=== PATIENT | female | born 1945 | race Caucasian/White ===

== ENCOUNTER → 2020-06-29 11:53 | Outpatient (CLI) | payer MEDICARE, OTHER, SELFPAY ==
--- NOTE | ~2020-06-29 | XR_ITS ---
XR_CERV2-3V_CR 06/29/2020 12:09 Indication: Neck pain. Cervicalgia. Procedure: 4 view cervical spine Comparison: No prior studies for comparison. Findings: Vertebral body heights are maintained. There is mild disc narrowing at C4-5 and C5-6. There is moderate multilevel uncinate and facet hypertrophy. Lung apices are unremarkable. Odontoid proces s within normal limits. No prevertebral soft tissue swelling. Impression: 1: Moderate cervical spondylosis. Reviewed, dictated and finalized at location A. Impression: 1: Moderate cervical spondylosis.
--- NOTE | ~2020-06-29 | XR_ITS ---
XR foot RT 2V 06/29/2020 12:09 Indication: Right foot pain Procedure: 2 views right foot Comparison: No prior studies for comparison. Findings: Mild osteoarthritis of the first MTP joint. Lisfranc joint joint intact. Osteopenia. No for eign bodies. There are degenerative calcaneal enthesophytes. Impression: 1: Mild osteoarthritis right first MTP joint. Reviewed, dictated and finalized at location A. Impression: 1: Mild osteoarthritis right first MTP joint.
== END ==
PROVIDERS: Visit Provider Family Medicine
DX: M54.2 Cervicalgia (principal); M79.671 Pain in right foot; M19.071 Primary osteoarthritis, right ankle and foot; M47.812 Spondylosis without myelopathy or radiculopathy, cervical region
CPT/HCPCS: 72040; 73620

== ENCOUNTER → 2021-03-08 12:16 | Outpatient (CLI) | payer MEDICARE, OTHER, SELFPAY ==
--- NOTE | ~2021-03-08 | XR_ITS ---
EXAMINATION: XR chest 2V DATE: 03/08/2021 12:44 INDICATION: Cough, unspecified. TECHNIQUE: Frontal and lateral views of the chest were obtained. COMPARISON: Chest 2 views 04/18/2018 FINDINGS: Calcified bilateral pulmonary nodules and calcified hilar and mediastinal lymph nodes are c onsistent with old granulomatous disease. No pleural effusion or pneumothorax. The heart size is norm al. There is mild chronic anterior wedging of a lower thoracic vertebral body. IMPRESSION: 1. No acute cardiopulmonary disease. 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
== END ==
PROVIDERS: PCP Family Medicine; Visit Provider Family Medicine
DX: R05.9 Cough, unspecified (principal)
CPT/HCPCS: 71046

== ENCOUNTER 2021-11-03 09:47 | Outpatient (CLI) | payer MEDICARE, OTHER, SELFPAY ==
[2021-11-03 11:50] LABS: Folic Acid > 20.0 ng/mL (2.76->20)
== END 2021-11-03 09:48 | disposition home or self-care (01) ==
PROVIDERS: PCP Family Medicine; Visit Provider Nurse Practitioner Family
DX: E53.8 Deficiency of other specified B group vitamins (principal)
CPT/HCPCS: 36415; 82607; 82746

== ENCOUNTER 2021-11-29 14:24 | Outpatient (CLI) | payer MEDICARE, OTHER, SELFPAY ==
--- NOTE | 2021-11-29 14:59 | ECHO_ITS ---
Patient Info Name: Shala Gonzalez Age: 76 years : 1945 Gender: Female Ht: 55 in Wt: 113 lbs BSA: 1.43 m2 BP: 178 / 74 mmHg Technical Quality: Good Exam Date: 11/29/2021 3:28 PM Exam Location: [facility] Patient Status: Outpatient Admit Date: 11/29/2021 Staff Ordering Physician: Avani Dupont Sanitation Supervisor: Eddie Britt RDCS, RT Attending Provider: Avani Dupont Referring Physician: Kiah KUMAR; Exam Type: CA echo dop color flow w con Study Info Indications R01.1 - Cardiac murmur, unspecified Complete two-dimensional, color flow and Doppler transthoracic echocardiogram is performed. Strain analysis performed. Summary 1. Complete two-dimensional, color flow and Doppler transthoracic echocardiogram is performed. 2. Left ventricular chamber dimension is normal. 3. Left ventricular systolic function is normal, estimated at 65-70%. 4. The left ventricular diastolic function is grade II diastolic dysfunction. 5. Global longitudinal strain is normal at -17.3%. 6. Left atrial chamber dimension is mildly enlarged. 7. There is mild to moderate mitral valve regurgitation. 8. There is moderate tricuspid valve regurgitation. 9. Mild pulmonary hypertension, estimated pulmonary arterial systolic pressure is 42 mmHg. 10. Small atheroma in anterior aortic root. Left Ventricle Global longitudinal strain is normal at -17.3%. Left ventricular chamber dimension is normal. Left ventricular systolic function is normal, estimated at 65-70%. The left ventricular diastolic function is grade II diastolic dysfunction. Tissue doppler E/e' is not calculated. Right Ventricle Right ventricular systolic function is normal and with normal TAPSE 2.2 cm. Right ventricular chamber dimension is normal. Left Atria Left atrial chamber dimension is mildly enlarged. Right Atria Right atrial chamber dimension is normal. Aortic Valve The aortic valve is trileaflet. There is no aortic valve stenosis. There is no aortic valve regurgitation. Pulmonic Valve There is no pulmonic regurgitation. Mitral Valve There is no mitral valve stenosis. There is mild to moderate mitral valve regurgitation. Tricuspid Valve There is moderate tricuspid valve regurgitation. Mild pulmonary hypertension, estimated pulmonary arterial systolic pressure is 42 mmHg. Pericardium/Pleural There is no pericardial effusion. Inferior Vena Cava Normal inferior vena cava with >50% collapse upon inspiration consistent with normal right atrial pressure, 5 mmHg. Aorta Small atheroma in anterior aortic root. The aortic root size at the sinus of Valsalva is normal. Left Ventricular Outflow Tract Name Value Normal LVOT 2D LVOT Diameter 1.87 cm LVOT Doppler LVOT Peak Gradient 5 mmHg LVOT Mean Gradient 3 mmHg LVOT VTI 31.17 cm LVOT VTI/AV VTI Ratio 0.64 LVOT Stroke Volume 85.73 ml LVOT CO 5.25 l/min LVOT CI
== END 2021-11-29 14:25 | disposition home or self-care (01) ==
LOC: ANHCARD 14:26
PROVIDERS: PCP Family Medicine; Visit Provider Nurse Practitioner Family
DX: R01.1 Cardiac murmur, unspecified (principal); I08.3 Combined rheumatic disorders of mitral, aortic and tricuspid valves
CPT/HCPCS: 93306

== ENCOUNTER 2023-01-20 16:22 | Emergency (ER) | payer MEDICARE, OTHER, SELFPAY ==
--- NOTE | ~2023-01-20 | XR_ITS ---
EXAMINATION: XR chest 2V DATE: 01/20/2023 17:26 INDICATION: Cough and congestion TECHNIQUE: PA and lateral views of the chest were obtained. COMPARISON: Chest radiograph dated 03/08/2021 FINDINGS: Again seen are few scattered bilateral small calcified pulmonary nodules consistent with old granulom atous disease. No other airspace opacities, pulmonary edema, pleural effusion or pneumothorax. The ca rdiomediastinal silhouette is normal. 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 IMPRESSION: 1. No acute cardiopulmonary disease. Reviewed, dictated and finalized at location A. 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
[2023-01-20 16:24] VITALS: BP 193/75; PULSE 88; RESP 20; TEMP 36.6; O2SAT 99
[2023-01-20 16:46] VITALS: BP 164/68; PULSE 79; RESP 14; O2SAT 99
--- NOTE | 2023-01-20 17:08 | ED.EAR ---
HPI - Ear Problem General Chief complaint: Ear Stated complaint: bilateral ear pain Time Seen by Provider: 01/20/23 16:57 History of Present Illness HPI Narrative: 77-year-old female who reports to the emergency department for evaluation of decreased hearing in her bilateral ears, nasal congestion and popping sensations in her ears for the past year. Patient states she has been seen by her primary care provider for this many times and has been taking Flonase daily as well as antihistamines without relief. She reports to the emergency department today because she states she let her dog out to go to the bathroom earlier today inset a 5 minute timer in tonight here that time were all which concerned her and prompted her to come to the ED. she does endorse a mild intermittent productive cough for the past few days and worsening nasal congestion for the past week. She denies ear pain or drainage, fevers, chest pain or shortness of breath. Related Data Allergies Allergy/AdvReac Type Severity Reaction Status Date / Time No Known Allergies Allergy Verified 01/20/23 16:23 Review of Systems Review of Systems: CONSTITUTIONAL: Denies fever, chills, or sweats. EYES: Denies visual changes, redness, or discharge. ENT: See HPI CARDIOVASCULAR: Denies chest pain, palpitations, or edema. RESPIRATORY: see HPI GASTROINTESTINAL: Denies abdominal pain, nausea, vomiting, or diarrhea. GENITOURINARY: Denies dysuria or hematuria. SKIN: Denies rash or itching. MUSCULOSKELETAL: Denies back pain, joint pain, or myalgia. NEUROLOGIC: Denies headache, numbness, or weakness. PSYCHIATRIC: Denies anxiety or depression. [facility] Past Medical History Medical History Chronic anemia Family History Family History Mother Hypertension Family history of diabetes mellitus in first degree relative Sibling Family history of malignant neoplasm of esophagus Social History Social History Smoking status: Never smoker Second hand tobacco smoke exposure: Yes Alcohol intake: never Alcohol use details: rare Substance use: never Substance use type: does not use Living arrangements: alone Occupation/Education: retired Gender identity (if verbalized by the patient): Female Exam Narrative: GENERAL: Well-appearing, well-nourished, and in no acute distress. patient resting comfortably in exam bed. She is pleasant and conversational. HEAD: Normocephalic, atraumatic. EYES: PERRLA and EOMI. ENT: Nares clear, no rhinorrhea or epistaxis. Mucous membranes moist. Posterior pharynx without erythema or tonsillar hypertrophy. Uvula midline. Right TM is aparicio nonbulging, no effusion, normal canal. Left TM with serous effusion, no bulging or erythema to the TM. Normal canal. No mastoid tenderness bilaterally. No pain with movement of auricles. Patient does have difficulty hearing during conversation he which has been chronic for the past year. NECK: Supple. CHEST: Clear to auscultation. No respiratory distress. HEART: Regular rate and rhythm. No murmur heard. Normal peripheral pulses. EXTREMITIES: Normal range of motion. No edema. SKIN: Warm, dry, no rash. NEURO: No focal deficits. Alert and oriented x3 Course Vital Signs Vital signs: Vital Signs Temperature 97.8 F 01/20/23 16:24 Pulse Rate 88 01/20/23 16:24 Respiratory Rate 20 01/20/23 16:24 Blood Pressure 193/75 H 01/20/23 16:24 Pulse Oximetry 99 01/20/23 16:24 Oxygen Delivery Room Air 01/20/23 16:24 Temperature 97.8 F 01/20/23 16:24 Pulse Rate 79 01/20/23 16:46 Respiratory Rate 14 01/20/23 16:46 Blood Pressure 164/68 H 01/20/23 16:46 Pulse Oximetry 99 01/20/23 16:46 Oxygen Delivery Room Air 01/20/23 16:24 Medical Decision Making MDM Narrative Medical decision making
[2023-01-20 18:10] LABS: Influenza A QL RT-PCR Negative (Negative); Influenza B QL RT-PCR Negative (Negative); RSV RNA, RT-PCR Negative (Negative); SARS-CoV-2 RNA PCR Negative (Negative)
== END 2023-01-20 19:08 | disposition home or self-care (01) ==
PROVIDERS: Emergency Provider Physician Assistant; PCP Family Medicine
DX: J32.1 Chronic frontal sinusitis (principal); H65.92 Unspecified nonsuppurative otitis media, left ear; Z20.822 Contact with and (suspected) exposure to COVID-19
CPT/HCPCS: 71046; 87637; 99283

== ENCOUNTER 2023-11-15 16:31 | Inpatient (IN) | payer MEDICARE, OTHER, SELFPAY ==
[2023-11-15] VITALS (28 sets, daily range): BP systolic 113–163; BP diastolic 39–81; PULSE 93–120; RESP 14–29; TEMP 37–40.1; O2SAT 79–100; BMI 27.0
--- NOTE | ~2023-11-15 | XR_ITS ---
Portable chest x-ray Comparison: 11/15/2023 Clinical History: Tachypnea Findings: Lungs are clear, without focal consolidation or pleural effusion. Cardiomediastinal silho uette is stable. Bones and soft tissues are unremarkable. Impression: Normal chest. Reviewed, dictated and finalized at location . Impression: Normal chest.
--- NOTE | ~2023-11-15 | CT_ITS ---
CLINICAL INDICATION: Fever, pain, altered mental status COMPARISON: None. TECHNIQUE: An enhanced CT of the abdomen and pelvis was performed utilizing multislice spiral technPassportParking ue reconstructed at 2.5 mm slice thickness. Coronal and sagittal reconstructions were performed. DLP: 549.22 mGy-cm FINDINGS/OBSERVATIONS: Lung: Multiple calcified pulmonary nodules detected bilaterally suggesting prior granulomatous disease. No pulmonary nodules or discrete pulmonary masses are detected. Mediastinum: No pathologically enlarged or morphologically suspicious lymph nodes are identified with in the mediastinum or within the bilateral axilla. The heart is of normal size, without pericardial effusion. Small hiatal hernia is present. Soft tissues of the chest: Unremarkable. Bones of the chest: Abnormal heterogeneous mineralization of multiple vertebral bodies within the tho racic spine, specifically the vertebral bodies of T8-T11 for which a malignancy is suspected. There is abnormal appearance extends to the posterior facets as well as the lamina of these vertebral bodies. Liver: The liver is of normal attenuation and normal size. Gallbladder and biliary system: The gallbladder is surgically absent. Pancreas: Trace fatty atrophy of the pancreas without ductal dilatation or a discrete mass. Spleen: Punctate calcifications within the spleen, suggesting prior granulomatous disease. Kidneys: Prominence of the right renal pelvis suggesting long-standing UPJ stenosis. The remainder of the right ureter is unremarkable. The left kidney, collecting system and ureter are unremarkable. Adrenal glands: Unremarkable Gastrointestinal tract: Fecal stasis within the rectosigmoid colon. Colonic diverticulosis without londono rrounding inflammatory change. Appendix:Surgically absent Vasculature: Densely calcified atherosclerotic disease within the abdominal aorta. Lymph nodes: Scattered nonpathologically lymph nodes within the mesentery, a nonspecific finding. Pelvic structures: The uterus is absent. The bladder is only minimally distended, but otherwise unremarkable. Body wall and musculoskeletal: Multiple lytic lesions are identified within the pelvis and sacrum, in a similar pattern to the thoracic vertebral bodies for which a malignancy is suspected. IMPRESSION: Multiple lytic and sclerotic lesions within the vertebral bodies of the lower thoracic spine as well as within the pelvis, for which a malignancy is suspected. Additional findings suggesting prior granulomatous disease. Reviewed, dictated and finalized at location A. IMPRESSION: Multiple lytic and sclerotic lesions within the vertebral bodies of the lower t horacic spine as well as within the pelvis, for which a malignancy is suspected . Additional findings suggesting prior granulomatous disease.
--- NOTE | ~2023-11-15 | CT_ITS ---
EXAMINATION: CT brain wo con DATE: 11/15/2023 17:16 INDICATION: Altered mental status. TECHNIQUE: Computed tomography (CT) of the head was performed without intravenous contrast. The mA wa s adjusted according to patient size. Iterative reconstruction technique was employed. The dose-lengt h product was 605.33 mGy-cm. COMPARISON: Head CT 03/21/2018 FINDINGS: There is no intracranial hemorrhage, acute infarction, or abnormal intracranial mass lesion . There are scattered areas of low attenuation in the cerebral white matter, which is within normal l imits for the patient's age. The ventricles are normal in size. The orbits are normal. The paranasal sinuses are clear. There is a left mastoid effusion. IMPRESSION: 1. Normal aging brain. Reviewed, dictated and finalized at location A. IMPRESSION: 1. Normal aging brain.
--- NOTE | ~2023-11-15 | US_ITS ---
EXAMINATION: US venous doppler [facility] DATE: 11/16/2023 20:12 INDICATION: Leg pain TECHNIQUE: Grayscale ultrasound images without and with compression and Doppler ultrasound images of the bilateral lower extremity veins were obtained. COMPARISON: None. FINDINGS: The visualized portions of right common femoral vein, profunda (deep) femoral vein, femoral vein, pop liteal vein, peroneal veins, posterior tibial veins, and greater saphenous vein outflow are patent. The visualized portions of left common femoral vein, profunda femoral vein, femoral vein, popliteal v ein, peroneal veins, posterior tibial veins, and greater saphenous vein outflow are patent. IMPRESSION: 1. No deep venous thrombosis. Reviewed, dictated and finalized at location A.
--- NOTE | ~2023-11-15 | XR_ITS ---
EXAMINATION: XR chest 1V portable DATE: 11/18/2023 05:46 INDICATION: Pneumonia. TECHNIQUE: A single frontal view of the chest was obtained. COMPARISON: Chest single view 11/16/2023, chest CT 11/15/2023 FINDINGS: Calcified pulmonary nodules are consistent with old granulomatous disease. No pleural effus ion or pneumothorax. The heart size is normal. IMPRESSION: 1. No acute cardiopulmonary disease. Reviewed, dictated and finalized at location A.
--- NOTE | ~2023-11-15 | XR_ITS ---
EXAMINATION: XR bone survey comp/metastic DATE: 11/17/2023 11:59 INDICATION: Multiple myeloma. TECHNIQUE: 29 views of a skeletal survey were obtained. COMPARISON: CT 11/15/2023, chest two views 03/08/21 FINDINGS: In T10 and T11, there is thickening of the endplates. There is sclerosis of T11 vertebral b yina. 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 2. No evidence of multiple myeloma. Reviewed, dictated and finalized at location A.
--- NOTE | ~2023-11-15 | XR_ITS ---
EXAMINATION: XR chest 2V DATE: 11/15/2023 17:09 INDICATION: Shortness of breath. Cough. TECHNIQUE: Frontal and lateral views of the chest were obtained. COMPARISON: Chest 2 views 01/20/2023 FINDINGS: Calcified pulmonary nodules and calcified hilar lymph nodes are consistent with old granulo matous disease. No pleural effusion or pneumothorax. The heart size is normal. IMPRESSION: 1. No acute cardiopulmonary disease. Reviewed, dictated and finalized at location A.
--- NOTE | 2023-11-15 16:46 | ECG_ITS ---
Test Date: 2023-11-15 16:59:21 Measurements Intervals [place] Rate: 115 P: 4 MD: 240 QRS: -3 QRSD: 132 T: 139 QT: 368 QTc: 511 Interpretive Statements SINUS TACHYCARDIA WITH FIRST DEGREE AV BLOCK LEFT BUNDLE BRANCH BLOCK ABNORMAL ECG No previous ECG available for comparison Electronically Signed On 11-16-2023 07:52:29 CDT by Gwyn Bustos M.D.
--- NOTE | 2023-11-15 16:46 | ED.DIZZY ---
HPI - Dizziness General Chief Complaint: Dizziness <AGNIESZKA Israel Last Filed: 11/15/23 17:01> Stated Complaint: dizzy since yesterday <AGNIESZKA Israel Last Filed: 11/15/23 17:01> Time Seen by Provider: 11/15/23 16:46 <AGNIESZKA Israel Last Filed: 11/15/23 17:01> Focused HPI: Patient is an 78-year-old female who presents the ED with multiple complaints. Patient reports she has not been feeling well over the last 3-4 days. She has been extremely weak, fatigued, dizzy, had a dry cough, intermittent fever, T-max 102? F, headaches, body aches, chest tightness, shortness breath - worse with exertion. She reported having a few episodes of emesis a couple of days ago. Denies current nausea. Daughter also reports patient has been slightly confused lately, which is not normal for her. GENERAL: Ill-appearing, elderly/frail, and in no acute distress. HEAD: Normocephalic, atraumatic. CHEST: Clear to auscultation. Mild tachypnea. No significant focal lung sounds. HEART: Tachycardic with regular rhythm.? NEURO: ?Alert and oriented x3. Patient screened in triage and initial orders placed.? ?Additional care and disposition to be based upon?diagnostic testing and treatment. <AGNIESZKA Israel Last Filed: 11/15/23 17:01> Source: patient and family <AGNIESZKA Israel Last Filed: 11/15/23 17:01> Mode of arrival: ambulatory <AGNIESZKA Israel Last Filed: 11/15/23 17:01> Limitations: no limitations <AGNIESZKA Israel Filed: 11/15/23 17:01> Related Data Home Medications: Home Medications Medication Instructions Recorded Confirmed glipizide 5 mg tablet, extended 5 mg PO DAILY 11/15/23 11/15/23 release 24 hr hydrochlorothiazide 25 mg tablet 25 mg PO DAILY 11/15/23 11/15/23 losartan 100 mg tablet 100 mg PO DAILY 11/15/23 11/15/23 metoprolol tartrate 25 mg tablet 25 mg PO DAILY 11/15/23 11/15/23 <Anahi Lino PA-C - Last Filed: 11/15/23 17:01> Allergies/Adverse Reactions: Allergies Allergy/AdvReac Type Severity Reaction Status Date / Time No Known Allergies Allergy Verified 07/19/23 13:11 <Anahi Lino PA-C - Last Filed: 11/15/23 17:01> Review of Systems Review of Systems: All systems reviewed & are unremarkable except as noted in HPI and below <William Chaudhry MD - Last Filed: 11/16/23 04:36> [facility] Past Medical History Medical History: Medical History Chronic anemia <Anahi Lino PA-C - Last Filed: 11/15/23 17:01> Family History Family History: Family History Mother Hypertension Family history of diabetes mellitus in first degree relative Sibling Family history of malignant neoplasm of esophagus <AGNIESZKA Israel Last Filed: 11/15/23 17:01> Social History Social History: Social History (Updated 07/19/23 @ 13:12 by Porsha Villanueva) Smoking status: Never smoker Second hand tobacco smoke exposure: Yes Alcohol intake: never Alcohol use details: rare Substance use: never Substance use type: does not use Do You Feel Safe in your Home?: Yes Lack of Transportation: No Lack of Food: Never True Current Housing: I Have Housing Concerned About Future Housing: No Difficulty Paying Gas/Electric Bills: No Difficulty Paying for Meds: No Currently Unemployed: No Education: Decline to Answer Difficulty w/ Childcare or Family Care: No Living arrangements: alone Occupation/Education: retired Gender identity (if verbalized by the patient): Female Sexual Orientation (if Verbalized by the Patient): Straight or Heterosexual Spiritual care concerns: No <AGNIESZKA Israel Last Filed: 11/15/23 17:01> Exam Narrative: APPEARANCE: Ill-appearing HEAD: normocephalic, atraumatic. EY
[2023-11-15 17:08] LABS: Basophils Percent Auto 0.3 % (0.2-1.2); Hematocrit 34.8 % (37.0-47.0); Hemoglobin 11.4 g/dL (12.0-15.0); Immature Granulocyte Absolute 0.04 K/mm3 (0.00-0.031); Immature Granulocyte Percent A 0.6 % (0-0.5); Lymphocytes Absolute Auto 0.63 K/mm3 (0.9-3.2); Lymphocytes Percent Auto 9.2 % (18.3-44.2); Mean Corpuscular HGB Conc 32.8 g/dl (32-36); Mean Corpuscular Hemoglobin 28.4 pg (26-34); Mean Corpuscular Volume 86.8 fl (80-100); Mean Platelet Volume 10.2 fl (7.4-10.4); Monocytes Absolute Auto 0.4 K/mm3 (0.1-0.6); Monocytes Percent Auto 6.4 % (2.6-8.5); Neutrophils Absolute Auto 5.8 K/mm3 (1.3-6.7); Neutrophils Percent Auto 83.5 % (45.5-73.1); Platelet Count Result 240 k/mm3 (150-375); Red Blood Count 4.01 M/mm3 (4.2-5.4); Red Cell Distribution Width 13.9 % (11.5-14.5); White Blood Count 6.9 K/mm3 (4.5-10.0)
[2023-11-15 17:18] LABS: INR 0.9; Lactic Acid Reflex 1.9 mmol/L (0.7-2.0)
[2023-11-15 17:19] LABS: Partial Thromboplastin Time 25.1 Seconds (22.3-36.8)
[2023-11-15 17:21] LABS: Alanine Aminotransferase 32 U/L (6-35); Albumin Level 4.4 g/dL (3.5-5.1); Alkaline Phosphatase 119 U/L (38-126); Anion Gap 10 mmol/L (4-12); Aspartate Amino Transferase 82 U/L (14-36); Bilirubin,Total 0.5 mg/dL (0.2-1.3); Blood Urea Nitrogen 16 mg/dL (7-17); CRP 6.3 mg/dL (<1.0); Calcium 9.1 mg/dL (8.4-10.2); Carbon Dioxide 24 mmol/L (22-30); Chloride 96 mmol/L (98-107); Estimated Glomerular Filt Rate 53; Glucose 113 mg/dL (65-110); Sodium 130 mmol/L (137-145)
[2023-11-15 17:29] LABS: Troponin I < 0.012 ng/mL (0.000-0.034)
[2023-11-15 17:47] LABS: Influenza A QL RT-PCR Negative (Negative); Influenza B QL RT-PCR Negative (Negative); RSV RNA, RT-PCR Negative (Negative); SARS-CoV-2 RNA PCR Negative (Negative)
[2023-11-15 18:21] LABS: Magnesium 1.4 mg/dL (1.6-2.3)
[2023-11-15] MEDS: ACETAMINOPHEN 325 MG TABLET 650 MG PO (19:21)
[2023-11-15] MEDS: SODIUM CHLORIDE 0.9% IV 1,000 ML 999 ML IV CONT (19:21)
[2023-11-15] MEDS: POTASSIUM CHLORIDE 20 MEQ PACKET (FOR LIQUID) 40 MEQ PO (19:22)
[2023-11-15] MEDS: SODIUM CHLORIDE 0.9% IV 1,600 ML/1,000 ML BAG 999 ML IV CONT ×2 (19:23→20:56)
[2023-11-15 19:43] LABS: Add Urine Microscopic? YES; Appearance Urine Clear (Clear); Bacteria Urine None Seen /hpf; Bilirubin Urine Negative (Negative); Blood Urine Trace (Negative); Color Urine Dark Yellow (Yellow); Glucose Urine UA Negative (Negative); Ketones Urine 2+ mg/dL (Negative); Leukocyte Esterase Ur Trace LEU/UL (Negative); Need Manual Microscopic Reviewed; Nitrate Urine Negative (Negative); Protein Urine 2+ mg/dL (Negative); Specific Grav Ur 1.022 (1.001-1.035); Squamous Epithelial Cell Urine None Seen /hpf (Few); WBC Urine 0-5 /hpf (0-3)
[2023-11-15] MEDS: IBUPROFEN 600 MG TABLET (20:22)
[2023-11-15] MEDS: ACETAMINOPHEN 325 MG TABLET PO (20:58)
[2023-11-15] MEDS: ALBUTEROL SULFATE NEB 2.5 MG/3 ML INH 5 MG INHALATION (21:31)
--- NOTE | 2023-11-15 21:32 | PM.IMHP ---
H&P: HPI History of Present Illness Date/Time: 11/15/23 21:32 Chief Complaint: ams Narrative: This is an 78-year-old female with past medical history significant for hypertension, type diabetes mellitus, dyslipidemia, chronic anemia. Patient was brought to the emergency room due to lethargy, congestion, shortness of breath, fevers, generalized malaise body aches and pains for 4-5 days. Patient denies any nausea, vomiting, abdominal pain, diarrhea, pain or burning with urination has had some productive cough of greenish sputum. in emergency room preliminary workup has been essentially Low yielding. patient tested negative for influenza type A influenza type B COVID and RSV. a CT of chest abdomen and pelvis was significant for lytic lesions. patient has been admitted for further evaluation management and treatment. EXAMINATION: XR chest 2V DATE: 11/15/2023 17:09 INDICATION: Shortness of breath. Cough. TECHNIQUE: Frontal and lateral views of the chest were obtained. COMPARISON: Chest 2 views 01/20/2023 FINDINGS: Calcified pulmonary nodules and calcified hilar lymph nodes are consistent with old granulomatous disease. No pleural effusion or pneumothorax. The heart size is normal. IMPRESSION: 1. No acute cardiopulmonary disease. EXAMINATION: CT brain wo con DATE: 11/15/2023 17:16 INDICATION: Altered mental status. TECHNIQUE: Computed tomography (CT) of the head was performed without intravenous contrast. The mA was adjusted according to patient size. Iterative reconstruction technique was employed. The dose-length product was 605.33 mGy-cm. COMPARISON: Head CT 03/21/2018 FINDINGS: There is no intracranial hemorrhage, acute infarction, or abnormal intracranial mass lesion. There are scattered areas of low attenuation in the cerebral white matter, which is within normal limits for the patient's age. The ventricles are normal in size. The orbits are normal. The paranasal sinuses are clear. There is a left mastoid effusion. IMPRESSION: 1. Normal aging brain. CLINICAL INDICATION: Fever, pain, altered mental status COMPARISON: None. TECHNIQUE: An enhanced CT of the abdomen and pelvis was performed utilizing multislice spiral technique reconstructed at 2.5 mm slice thickness. Coronal and sagittal reconstructions were performed. DLP: 549.22 mGy-cm FINDINGS/OBSERVATIONS: Lung: Multiple calcified pulmonary nodules detected bilaterally suggesting prior granulomatous disease. No pulmonary nodules or discrete pulmonary masses are detected. Mediastinum: No pathologically enlarged or morphologically suspicious lymph nodes are identified within the mediastinum or within the bilateral axilla. The heart is of normal size, without pericardial effusion. Small hiatal hernia is present. Soft tissues of the chest: Unremarkable. Bones of the chest: Abnormal heterogeneous mineralization of multiple vertebral bodies within the thoracic spine, specifically the vertebral bodies of T8-T11 for which a malignancy is suspected. There is abnormal appearance extends to the posterior facets as well as the lamina of these vertebral bodies. Liver: The liver is of normal attenuation and normal size. Gallbladder and biliary system: The gallbladder is surgically absent. Pancreas: Trace fatty atrophy of the pancreas without ductal dilatation or a discrete mass. Spleen: Punctate calcifications within the spleen, suggesting prior granulomatous disease. Kidneys: Prominence of the right renal pelvis suggesting long-standing UPJ stenosis. The remainder of the right ureter is unremarkable. The left kidney, collecting system and ureter are unremarkable. Adrenal glands: Unremarkable Gastrointestinal tract: Fecal stasis within the rectosigmoid colon. Colonic diverticulosis without surrounding inflammatory change. Appendix:Surgically absent Vasculature: Densely calcified atherosclerotic disease within the abdominal aorta. Lymph node
[2023-11-15] MEDS: cefTRIAXone 2 GM/NS 100 ML 2 GM/100 ML BAG IVPB (21:58)
--- NOTE | 2023-11-15 22:16 | PC.NURSE ---
unable to edit mar - normal saline pt only received 1600ml
[2023-11-15] MEDS: VANCOMYCIN 1,250 MG/NS 250 ML 1,250 MG/250 ML BAG 166.67 MG IVPB (22:27)
--- NOTE | 2023-11-15 22:54 | ADMGEN ---
[id number] This patient, Shala Gonzalez, was admitted to IMU Room 206-01. Patient/family oriented to hospital policies and general routines including ID bracelet, bed and alarms, visiting hours, pain management, procedures, bathroom and other care routines, personal items, smoking policy, room service/diet, and visiting hours. Information on how to activate the Rapid Response Team has been discussed. Patient/Family are encouraged to report perceived risks to care and to ask questions if they do not understand what they are told or what they should do.
[2023-11-15 23:18] LABS: Glucose Point of Care 199 mg/dl (65-105)
[2023-11-15] MEDS: busPIRone HCL 5 MG TABLET PO (23:55)
[2023-11-16] VITALS (29 sets, daily range): BP systolic 90–128; BP diastolic 37–59; PULSE 78–104; RESP 14–24; TEMP 36.3–36.9; O2SAT 94–100; BMI 27.0
--- NOTE | 2023-11-16 | ECHO_ITS ---
Patient Info Name: Shala Gonzalez Age: 78 years : 1945 Gender: Female Ht: 57 in Wt: 116 lbs BSA: 1.47 m2 HR: 88 bpm BP: 122 / 59 mmHg Heart Rhythm: Sinus Rhythm Technical Quality: Fair Exam Date: 11/16/2023 3:33 PM Exam Location: Echo Lab Patient Status: Inpatient Admit Date: 11/16/2023 Staff Ordering Physician: Antonio Betts MD [employer] Manager: Jaqueline Chaudhry [facility] Attending Provider: Virginia Linda MD Exam Type: CA echo doppler color flow Study Info Indications I50.20 - Unspecified systolic (congestive) heart failure Complete two-dimensional, color flow and Doppler transthoracic echocardiogram is performed. Summary 1. Complete two-dimensional, color flow and Doppler transthoracic echocardiogram is performed. 2. Normal left ventricular size, thickness systolic and diastolic function. 3. Mild mitral, tricuspid and pulmonic valve regurgitation. 4. Moderate left atrial enlargement. Left Ventricle Left ventricular chamber dimension is normal. Left ventricular systolic function is normal, estimated at 60-65%. The left ventricular diastolic function is normal. Right Ventricle Right ventricular chamber dimension is normal. Left Atria Left atrial chamber dimension is moderately enlarged. Right Atria Right atrial chamber dimension is normal. Aortic Valve The aortic valve is trileaflet. There is mild aortic valve sclerosis. Pulmonic Valve The pulmonic valve is normal. There is mild pulmonic regurgitation. Mitral Valve The mitral valve has normal leaflets. There is mild mitral valve regurgitation. Tricuspid Valve The tricuspid valve leaflets are normal. There is mild tricuspid valve regurgitation. Pericardium/Pleural The pericardium appears normal. Aorta The aortic root size at the sinus of Valsalva is normal. Left Ventricular Outflow Tract Name Value Normal LVOT 2D LVOT Diameter 1.9 cm LVOT Doppler LVOT Peak Gradient 4 mmHg LVOT Mean Gradient 2 mmHg LVOT VTI 22 cm LVOT VTI/AV VTI Ratio 0.5 LVOT Stroke Volume 59 ml LVOT CO 4.5 l/min LVOT CI 3.0 l/min/m2 Pulmonic Valve Name Value Normal RVOT Doppler RVOT Peak Gradient 3 mmHg PV Regurgitation Doppler IN Peak End Diastolic Velocity 92 cm/s Mitral Valve Name Value Normal MV Doppler MV Decel Grady 639 cm/s2 MV PHT 45 ms
[2023-11-16] MEDS: LEVALBUTEROL NEB 1.25 MG/3 ML 10 MG INHALATION (00:51)
--- NOTE | 2023-11-16 01:00 | PCRCNOTE ---
Albuterol not given at 0200 due to Levalbuterol given for an hour.
[2023-11-16 05:30] LABS: Hematocrit 30.6 % (37.0-47.0); Hemoglobin 9.8 g/dL (12.0-15.0); Mean Corpuscular Hemoglobin 29.9 pg (26-34); Mean Corpuscular Volume 93.3 fl (80-100); Mean Platelet Volume 9.9 fl (7.4-10.4); Platelet Count Result 149 k/mm3 (150-375); Red Blood Count 3.28 M/mm3 (4.2-5.4); Red Cell Distribution Width 14.4 % (11.5-14.5); White Blood Count 6.6 K/mm3 (4.5-10.0)
[2023-11-16 05:41] LABS: INR 1.1; Prothrombin Time 15.1 Seconds (11.1-14.7)
[2023-11-16 05:42] LABS: Anion Gap 11 mmol/L (4-12); Blood Urea Nitrogen 13 mg/dL (7-17); Calcium 7.6 mg/dL (8.4-10.2); Carbon Dioxide 18 mmol/L (22-30); Chloride 106 mmol/L (98-107); Estimated Glomerular Filt Rate 48; Glucose 275 mg/dL (65-110); Magnesium 1.2 mg/dL (1.6-2.3); Phosphorus 2.7 mg/dL (2.5-4.5); Sodium 135 mmol/L (137-145)
[2023-11-16 05:52] LABS: Lactic Acid Reflex 5.4 mmol/L (0.7-2.0)
[2023-11-16] MEDS: SODIUM CHLORIDE 0.9% IV 1,000 ML 250 ML IV CONT (06:30)
[2023-11-16] MEDS: ALBUTEROL SULFATE NEB 2.5 MG/3 ML INH INHALATION ×3 (06:59→20:26)
[2023-11-16 08:17] LABS: Glucose Point of Care 295 mg/dl (65-105)
[2023-11-16 08:28] LABS: Reflex Lactic Acid Yes or No Add Lactic
[2023-11-16] MEDS: CITALOPRAM HYDROBROMIDE 20 MG TABLET 40 MG PO (08:35)
[2023-11-16] MEDS: cefTRIAXone 2 GM/NS 100 ML 2 GM/100 ML BAG IVPB ×2 (08:36→21:18)
[2023-11-16 09:02] LABS: Lactic Acid 6.7 mmol/L (0.7-2.0)
[2023-11-16] MEDS: DOXYCYCLINE 100 MG/NS 100 ML 100 MG/100 ML BAG IVPB ×2 (11:36→23:41)
[2023-11-16] MEDS: METOPROLOL TARTRATE 25 MG TABLET PO ×2 (11:39→21:19)
[2023-11-16] MEDS: LOSARTAN POTASSIUM 100 MG TABLET PO (11:41)
[2023-11-16 11:47] LABS: D Dimer 3.31 ug/mL (<0.48)
[2023-11-16 11:55] LABS: Glucose Point of Care 342 mg/dl (65-105)
[2023-11-16] MEDS: busPIRone HCL 5 MG TABLET PO (12:13)
[2023-11-16] MEDS: INSULIN ASPART (*BKC) 100 UNITS/ML SUB-Q ×2 (12:27→17:07)
--- NOTE | 2023-11-16 13:04 | PM.IMPN ---
Progress Note: A&P Assessment and Plan (1) Febrile illness: Code(s): R50.9 - Fever, unspecified Status: Acute Assessment and Plan: Urinalysis reviewed Started the patient on ceftriaxone, vancomycin and doxycycline Urine culture and blood culture pending Lactic acid trending down Lactic acid at 9:00 p.m. Gentle rehydration preferred rather bolus due to shortness of breath (2) AMS (altered mental status): Code(s): R41.82 - Altered mental status, unspecified Status: Acute Assessment and Plan: likely secondary to acute febrile illness CT head with no changes (3) Type 2 diabetes mellitus without complications: Code(s): E11.9 - Type 2 diabetes mellitus without complications Status: Acute Assessment and Plan: hold glipizide hold metformin Started on moderate dose sliding scale Which started the dosage if needed add basal insulin (4) Essential hypertension: Code(s): I10 - Essential (primary) hypertension Status: Acute Assessment and Plan: holding hydrochlorothiazide Hold Losartan Hold metoprolol (5) Chronic anemia: Code(s): D64.9 - Anemia, unspecified Status: Acute Assessment and Plan: continue to monitor (6) Mixed hyperlipidemia: Code(s): E78.2 - Mixed hyperlipidemia Status: Acute (7) Anxiety: Code(s): F41.9 - Anxiety disorder, unspecified Status: Acute (8) Lytic lesion of bone on x-ray: Code(s): M89.9 - Disorder of bone, unspecified Status: Acute Assessment and Plan: Consulted Oncology (9) 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 Discussed with her daughter who provided the medical history. Patient lives in her home by herself and her daughter lives next door. Baseline patient does all her ADLs by herself but lately she has shortness of breath which is bothering her for a few months. Patient does not have any known cardiac disease other than the hypertension and diabetes mellitus. Chest Abdominal pelvic CT revealed granulomatous disease and a lytic lesion. In regards to the granulomatous disease pulmonology is consulted who believes current the current patient's symptoms are not related to the granulomatous disease. Ordered QuantiFERON TB test to rule out any tuberculosis disease. In regards to the lytic lesions Dr. Aguirre has been consulted. Since there is no AG likely torres of DKA is on least differential even though her urinary tract infection can cause DKA. In regards to her shortness of breath to rule out any cardiac causes ordered echocardiogram. Also ordered a lower extremity ultrasound to rule out any DVT. Patient has low potassium 2.8. Repleted with 60 mEq and with a magnesium of 2 g. Patient lactic acid has been trending down to 6.7 -3.9. Repeat lactic acid at 9:00 p.m. tonight. Patient received a bolus infusion in the morning. In regards to the shortness of breath prefer gentle fluid resuscitation. Patient is currently on ceftriaxone, vancomycin and doxycycline. A WBCs of 6.6., blood pressure 113/55, pulse 79, respiratory rate of 16, oxygen saturation 97% on 3 L. Blood culture and urine culture is pending and if necessary broad-spectrum antibiotic will be considered. Review of Systems Review of Systems: fevers, cold, cough, generalized malaise body aches and pains Exam Narrative: laying in a stretcher Const: General: comfortable, no acute distress, well developed, alert, awake, ill appearing acutely and average body habitus Nutritional Appearance: average body habitus Orientation/consciousness: patient oriented x3 HENMT: Head: normal to inspection, normocephalic and atraumatic Ears: hearin
[2023-11-16 13:25] LABS: Lactic Acid Reflex 3.9 mmol/L (0.7-2.0)
[2023-11-16 13:32] LABS: Alveolar/Arterial O2 Gradient 33.9 mmHg; Base Excess ABG -6.4 mEq/l (+/-2.0); Device NASAL CANNULA; Fractional Inspired Oxygen 28 %; HCO3 ABG 17.4 mEq/l (22.0-26.0); Oxygen Content ABG 13.2 %vol (16.0-22.0); Oxygen Saturation ABG 98.7 % (95.0-100.0); Oxyhemoglobin 97.5 % THb (90.0-100.0); PCO2 ABG 28.6 mmHg (35.0-45.0); PO2 FiO2 Ratio Arterial Blood 4.71 %; Site Drawn RIGHT BRACHIAL; Total Hemoglobin 9.4 g/dL (12.0-18.0); pH ABG 7.401 (7.350-7.450)
--- NOTE | 2023-11-16 13:47 | PM.CNPUL ---
Assessment and Plan Assessment and plan (1) Sepsis: Code(s): A41.9 - Sepsis, unspecified organism Status: Acute Assessment and Plan: This 78-year-old female, with a history of type 2 diabetes and no prior lung disease, presented with nonspecific symptoms including fatigue and a fever of 102?F. The initial workup revealed no signs of acute lung disease. However, the patient remained febrile on the first day of hospitalization and developed shortness of breath earlier today. She now exhibits new metabolic acidosis with elevated lactic acid levels and is hyperventilating as a compensatory response to the acidosis. Based on the patient's clinical history and diagnostic findings, sepsis is the most probable diagnosis, considering the presence of fever, generalized weakness, and new-onset metabolic acidosis with elevated lactic acid. The respiratory examination is largely unremarkable except for tachypnea, which is compensatory for the metabolic acidosis. In the absence of infiltrates on the chest CT, it is prudent to consider a possible intra-abdominal source for sepsis. I recommend discontinuing ceftriaxone and azithromycin, continuing with vancomycin, and adding meropenem to the current treatment regimen. This case was thoroughly discussed with the hospitalist. Given the current evidence of renal dysfunction, a pulmonary embolism is considered highly unlikely, and I suggest holding off on a chest CT pulmonary angiogram (CTPA) for now. We will continue to closely monitor the patient's respiratory status. (2) Type 2 diabetes mellitus without complications: Code(s): E11.9 - Type 2 diabetes mellitus without complications Status: Acute (3) Chronic anemia: Code(s): D64.9 - Anemia, unspecified Status: Acute History of Present Illness History of Present Illness Consult date: 11/16/23 Chief complaint: Fever/SOB/Weakness Narrative: This consultation addresses an abnormal chest CT scan indicating old granulomatous disease, which may be contributing to the patient's acute symptoms. Information was gathered from the patient's electronic medical record, discussions with the patient's hospitalist, and a direct conversation with the patient. The patient is a poor historian but reported feeling unwell for several days. Her symptoms include general weakness, fatigue, a dry cough, and possibly intermittent fever, headaches, body aches, and shortness of breath, which worsens with exertion. She mentioned experiencing shortness of breath for several weeks, though it has not changed recently. According to the ER physician, the patient reported a low-grade fever, peaking at 102?F, and an episode of vomiting prior to hospital admission. The patient has no known history of lung disease and is not on any related medications. Her medical history includes diabetes, managed with metformin, and chronic anemia. Upon admission, a chest CT revealed no active lung disease but identified multiple lytic and sclerotic lesions in the vertebral bodies of the lower thoracic spine and pelvis, raising suspicion of malignancy. Additionally, calcified granulomata were observed in the spleen, along with calcified lymph nodes, indicative of old granulomatous disease. Laboratory results showed no leukocytosis, elevated blood sugar, but normal total bicarbonate levels. On the first day in the hospital, the patient continued to be febrile with temperature up to 40?C. She reportedly experienced shortness of breath today. Laboratory data revealed the development of lactic acidosis, with lactate levels rising from normal at admission to 5-7 mmol/L, persistent hyperglycemia, and a slight increase in creatinine to over 1 mg/dL. The patient reportedly did not exhibit wheezing. During my examination, she was receiving nebulized short-acting bronchodilators, but physical examination confirmed the absence of wheezing. An abdominal CT scan indicated probable long-standing ureteropelvic
[2023-11-16 15:54] LABS: Beta-Hydroxybutyrate/Acetoacetate 0.05 mmol/L (0.02-0.27)
[2023-11-16 16:13] LABS: Alanine Aminotransferase 112 U/L (6-35); Albumin Level 2.8 g/dL (3.5-5.1); Alkaline Phosphatase 82 U/L (38-126); Anion Gap 8 mmol/L (4-12); Aspartate Amino Transferase 193 U/L (14-36); Bilirubin,Total 0.2 mg/dL (0.2-1.3); Blood Urea Nitrogen 13 mg/dL (7-17); Calcium 7.6 mg/dL (8.4-10.2); Carbon Dioxide 20 mmol/L (22-30); Chloride 107 mmol/L (98-107); Estimated Glomerular Filt Rate 60; Glucose 263 mg/dL (65-110); Potassium 2.8 mmol/L (3.4-5.0); Sodium 135 mmol/L (137-145)
[2023-11-16 16:23] LABS: Glucose Point of Care 207 mg/dl (65-105)
[2023-11-16 16:41] LABS: MRSA (PCR) NOT DETECTED (NOT DETECTE)
[2023-11-16] MEDS: ACETAMINOPHEN 500 MG TABLET 1000 MG PO (17:03)
[2023-11-16] MEDS: MAGNESIUM SULF 2 GM/WATER 50ML 2 GM/50 ML BAG IVPB (17:04)
--- NOTE | 2023-11-16 17:16 | PDONCCN ---
HPI - Date of Consult Date/Time: 11/16/23 17:16 Requesting Physician: Virginia Linda MD Primary Care Provider: Renato Emanuel MD - Consult Narrative Reason for consult: Lytic bone lesions Narrative: Shala Gonzalez is a 78 year old female without any previous history of malignancy but with history of type 2 diabetes, hypertension, hyperlipidemia and chronic anemia came into the ER with lightheadedness and dizziness along with some shortness of breath and confusion. She was having some generalized body aches for last 4-5 10. She has some lower back pain. She may have lost 4-5 lb recently. Has some no neuropathy. CT scan chest abdomen pelvis showed lytic lesions. She had a recent Cologuard test came back negative. Her last mammogram was done in 2016 and came back unremarkable. She has no other new complaints. Review of Systems - Review of Systems All systems reviewed & are unremarkable except as noted in HPI and [facility] Medical History: Medical History (Last Reviewed 07/19/23 @ 13:11 by Porsha Villanueva) Chronic anemia Family History: Family History (Last Reviewed 07/19/23 @ 13:11 by Porsha Villanueva) Mother Hypertension Family history of diabetes mellitus in first degree relative Sibling Family history of malignant neoplasm of esophagus - Social History Social History: Social History (Last Updated 07/19/23 @ 13:12 by Porsha Villanueva) Gender Identity: Gender identity (if verbalized by the patient): Female Sexual Orientation: Sexual Orientation (if Verbalized by the Patient): Straight or Heterosexual Alcohol Use: Alcohol intake: never Alcohol use details: rare Substance Use: Substance use: never Substance use type: does not use Others: Spiritual care concerns: No Living Arrangements: Living arrangements: alone Oppucation/Education: Occupation/Education: retired Smoking Status: Smoking status: Never smoker Second hand tobacco smoke exposure: Yes Social Determinants of Health: Do You Feel Safe in your Home?: Yes Has the Lack of Transportation Kept You From Medical Appointments or From Getting Medications?: No Within the Past 12 Months, Were You Worried Whether Your Food Would Run Out Before You Got Money to Buy More?: Never True What is Your Housing Situation Today?: I Have Housing Are You Worried That in the Next 2 Months, You May Not Have Your Own Housing to Live In?: No Do You Have Trouble Paying Your Heating Or Electricity Bill?: No Do You Have Trouble Paying For Medicines?: No Are You Currently Unemployed and Looking for Work?: No Highest Level of Education Completed: Decline to Answer Do You Have Trouble With Childcare or the Care of a Family Member?: No Exam - Vital Signs Vital Signs - 24 hr 11/15/23 19:09 11/15/23 20:11 11/15/23 21:26 Temperature 39.3 C H 40.1 C H Pulse Rate 109 H Respiratory Rate 24 H Blood Pressure 155/63 H Pulse Oximetry 98 85 L Oxygen Delivery Oxygen Flow Rate 11/15/23 21:26 11/15/23 21:26 11/15/23 21:27 Temperature Pulse Rate Respiratory Rate Blood Pressure Pulse Oximetry 85 L 89 L 92 Oxygen Delivery Room Air Nasal Cannula Nasal Cannula Oxygen Flow Rate 2 4 11/15/23 21:31 11/15/23 21:40 11/15/23 19:17 Temperature Pulse Rate 101 H 102 H 111 H Respiratory Rate 17 16 14 Blood Pressure Pulse Oximetry 99 Oxygen Delivery Oxygen Flow Rate 11/15/23 19:30 11/15/23 19:31 11/15/23 19:45 Temperature Pulse Rate 99 101 H 103 H Respiratory Rate 23 H 24 H 29 H Blood Pressure 163/67 H 157/68 H Pulse Oximetry 100 100 Oxygen Delivery Oxygen Flow Rate 11/15/23 20:06 11/15/23 20:15 11/15/23 20:24 Temperature Pulse Rate 95 95 93 Respiratory Rate 21 H 25 H 21 H Blood Pressure 150/65 H Pulse Oximetry 100 96 97 Oxygen Delivery Oxygen Flow Rate 11/15/23 20:
[2023-11-16] MEDS: POTASSIUM CHLORIDE 20 MEQ ER TABLET 60 MEQ PO (19:11)
[2023-11-16 19:50] LABS: Glucose Point of Care 182 mg/dl (65-105)
[2023-11-16] MEDS: PRAVASTATIN SODIUM 20 MG TABLET 40 MG PO (21:18)
[2023-11-16] MEDS: busPIRone HCL 5 MG TABLET 10 MG PO (21:19)
[2023-11-16 21:25] LABS: Potassium 3.1 mmol/L (3.4-5.0)
[2023-11-16 21:28] LABS: Lactate Dehydrogenase 333 U/L (120-246); Lactic Acid Reflex 1.8 mmol/L (0.7-2.0)
[2023-11-16 21:36] LABS: Immunoglobulin A 169 mg/dL (70-400); Immunoglobulin G 629 mg/dL (700-1600); Immunoglobulin M 43 mg/dL (40-230)
[2023-11-16 22:06] LABS: Iron 15 ug/dL (37-170)
[2023-11-16 22:15] LABS: Percent Iron Saturation 5 % (20-50)
[2023-11-16 22:34] LABS: Folic Acid 12.2 ng/mL (2.76->20)
[2023-11-16] MEDS: POTASSIUM CHLORIDE 20 MEQ ER TABLET 40 MEQ PO (23:42)
[2023-11-17] VITALS (25 sets, daily range): BP systolic 110–144; BP diastolic 47–63; PULSE 68–109; RESP 16–20; TEMP 36.8–38.1; O2SAT 93–99
[2023-11-17 06:16] LABS: Hematocrit 28.8 % (37.0-47.0); Mean Corpuscular HGB Conc 31.3 g/dl (32-36); Mean Corpuscular Hemoglobin 29.6 pg (26-34); Mean Corpuscular Volume 94.7 fl (80-100); Mean Platelet Volume 11.1 fl (7.4-10.4); Platelet Count Result 123 k/mm3 (150-375); Red Blood Count 3.04 M/mm3 (4.2-5.4); Red Cell Distribution Width 14.8 % (11.5-14.5); White Blood Count 5.3 K/mm3 (4.5-10.0)
[2023-11-17 06:23] LABS: Alanine Aminotransferase 129 U/L (6-35); Albumin Level 2.9 g/dL (3.5-5.1); Alkaline Phosphatase 101 U/L (38-126); Anion Gap 7 mmol/L (4-12); Aspartate Amino Transferase 146 U/L (14-36); Bilirubin,Total 0.3 mg/dL (0.2-1.3); Blood Urea Nitrogen 13 mg/dL (7-17); Calcium 8.2 mg/dL (8.4-10.2); Carbon Dioxide 18 mmol/L (22-30); Chloride 113 mmol/L (98-107); Estimated Glomerular Filt Rate 60; Glucose 150 mg/dL (65-110); Potassium 4.8 mmol/L (3.4-5.0); Sodium 138 mmol/L (137-145)
--- NOTE | 2023-11-17 06:33 | PCRCNOTE ---
Pt refused 0200 updraft treatment wanting to sleep. Pt satting 98% on room air clear lung sounds. Treatment to resume at 0800.
[2023-11-17 07:37] LABS: Glucose Point of Care 162 mg/dl (65-105)
[2023-11-17] MEDS: ALBUTEROL SULFATE NEB 2.5 MG/3 ML INH INHALATION ×3 (08:13→21:02)
--- NOTE | 2023-11-17 08:31 | PM.IMPN ---
Progress Note: A&P Assessment and Plan (1) Febrile illness: Code(s): R50.9 - Fever, unspecified Status: Acute Assessment and Plan: Urinalysis reviewed Started the patient on ceftriaxone, vancomycin and doxycycline Urine culture and blood culture pending Lactic acid trending down Lactic acid at 9:00 p.m. Gentle rehydration preferred rather bolus due to shortness of breath (2) AMS (altered mental status): Code(s): R41.82 - Altered mental status, unspecified Status: Acute Assessment and Plan: likely secondary to acute febrile illness CT head with no changes (3) Type 2 diabetes mellitus without complications: Code(s): E11.9 - Type 2 diabetes mellitus without complications Status: Acute Assessment and Plan: hold glipizide hold metformin Started on moderate dose sliding scale Which started the dosage if needed add basal insulin (4) Essential hypertension: Code(s): I10 - Essential (primary) hypertension Status: Acute Assessment and Plan: holding hydrochlorothiazide Hold Losartan Hold metoprolol (5) Chronic anemia: Code(s): D64.9 - Anemia, unspecified Status: Acute Assessment and Plan: continue to monitor (6) Mixed hyperlipidemia: Code(s): E78.2 - Mixed hyperlipidemia Status: Acute (7) Anxiety: Code(s): F41.9 - Anxiety disorder, unspecified Status: Acute (8) Lytic lesion of bone on x-ray: Code(s): M89.9 - Disorder of bone, unspecified Status: Acute Assessment and Plan: Consulted Oncology (9) 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 Currently breathing in the room air with a 96% saturation. Pending bone survey x-ray to rule out multiple myeloma. Yesterday there were episodes of hyperglycemia after admission since no initiation of anti diabetic regimen. Started on moderate ss. Currently BG in target as per hospitalized patient protocol. Beta hydroxybutyrate is negative. As mentioned the last time no evidence of DKA. Lower extremity DVTs negative. Will continue the antibiotic for her UTI. Review of Systems Review of Systems: fevers, cold, cough, generalized malaise body aches and pains Exam Narrative: laying in a stretcher Const: General: comfortable, no acute distress, well developed, alert, awake, ill appearing acutely and average body habitus Nutritional Appearance: average body habitus Orientation/consciousness: patient oriented x3 HENMT: Head: normal to inspection, normocephalic and atraumatic Ears: hearing grossly normal bilaterally Face/Nose/Sinus: normal facial exam Face and sinus: normal facial exam Eyes: General: appearance normal, both eyes and all related structures Pupils: Equal, round and reactive pupils present EOM: EOMs intact bilaterally Neck: Neck: full ROM, no lymphadenopathy and no JVD Thyroid: thyroid normal Lymphatic: no lymphadenopathy noted Resp: Effort & Inspection: normal respiratory effort and able to speak in complete sentences Auscultation: clear to auscultation bilaterally Cardio: Jugular venous distension: no JVD Rate: regular rate Rhythm: regular rhythm Heart sounds: S1 normal heart sound present and S2 normal heart sound present : General: Yes deferred Skin: Rashes: no rashes Wounds: no wounds Neuro: General: patient oriented x3 and CN's II-XI intact bilaterally Cranial nerves: Yes CN's II-XII intact bilaterally and Yes Equal, round and reactive pupils present Cognition (Neuro): normal cognition Speech: normal speech Gait exam (Neuro): Normal gait present Motor exam (neuro): 5/5 motor strength present throughout Extrem: General: normal to inspection, full ROM,
[2023-11-17] MEDS: cefTRIAXone 2 GM/NS 100 ML 2 GM/100 ML BAG IVPB ×2 (08:53→20:25)
[2023-11-17] MEDS: CITALOPRAM HYDROBROMIDE 20 MG TABLET 40 MG PO (08:57)
[2023-11-17] MEDS: METOPROLOL TARTRATE 25 MG TABLET PO ×2 (08:57→20:24)
[2023-11-17] MEDS: busPIRone HCL 5 MG TABLET PO (08:57)
[2023-11-17] MEDS: ENOXAPARIN 40 MG/0.4 ML SYRINGE SUB-Q (08:58)
[2023-11-17 09:07] LABS: Glucose Point of Care 227 mg/dl (65-105)
[2023-11-17 10:28] LABS: Toxigenic C. Diff NEGATIVE (NEGATIVE)
[2023-11-17] MEDS: VANCOMYCIN 1,000 MG/NS 250 ML 1,000 MG/250 ML BAG 250 MG IVPB (11:01)
--- NOTE | 2023-11-17 11:46 | PM.PNPUL ---
Progress Note: A&P Assessment and Plan (1) Lytic lesion of bone on x-ray: Code(s): M89.9 - Disorder of bone, unspecified Status: Acute (2) Sepsis: Code(s): A41.9 - Sepsis, unspecified organism Status: Acute Assessment and Plan: Respiratory status stable. She has no new respiratory symptoms. Laboratory results improved since yesterday. She has no leukocytosis. Creatinine back into the normal range. Platelets trending down. Total bicarbonate still low. She has no significant hypernea on exam. Plan. Respiratory status stable, repeat chest x-ray in a.m. workup for myeloma in progress. Continue with DVT prophylaxis. No need to continue with a short-acting bronchodilators. Cause of sepsis unclear. (3) Type 2 diabetes mellitus without complications: Code(s): E11.9 - Type 2 diabetes mellitus without complications Status: Acute Subjective Date/time seen: 11/17/23 11:46 Interval history: Patient has no new respiratory symptoms. Remains on room air. Hemodynamically stable. Denied having abdominal pain. Review of Systems Review of Systems: All systems reviewed & are unremarkable except as noted in HPI and below (HPI and below) Exam Narrative: GENERAL APPEARANCE: Well developed, well nourished, alert and cooperative, and appears to be in mild respiratory distress while receiving nebulized short-acting bronchodilators SKIN: Inspection of the skin reveals no rashes, ulcerations or petechiae. HEENT: Sclerae anicteric and conjunctivae pink and moist. Extraocular movements were intact and pupils were equal, round, and reactive to light. NECK: Supple. There was no thyroid enlargement, and no tenderness, or masses were felt. CHEST: Normal AP diameter and normal contour without any kyphoscoliosis. LUNGS: Clear lungs bilaterally no wheezing CARDIAC: Tachycardia, normal heart sounds no murmurs ABDOMEN: Soft and nontender with normal bowel sounds. There was no organomegaly. LYMPH NODES: No lymphadenopathy was appreciated in the neck.. EXTREMITIES: No cyanosis, clubbing or edema. NEUROLOGIC: Alert and oriented x 3. Normal affect. Objective Data Vital Signs Vital Signs: Vital Signs - 24 hr 11/16/23 13:05 11/16/23 13:13 11/16/23 16:00 Temperature 36.7 C Pulse Rate 79 81 79 Respiratory Rate 18 18 16 Blood Pressure 113/55 L Pulse Oximetry 97 Oxygen Delivery Oxygen Flow Rate 11/16/23 12:00 11/16/23 14:00 11/16/23 16:00 Temperature Pulse Rate 86 79 78 Respiratory Rate Blood Pressure Pulse Oximetry Oxygen Delivery Oxygen Flow Rate 11/16/23 12:00 11/16/23 16:00 11/16/23 19:43 Temperature 36.9 C Pulse Rate 85 Respiratory Rate 16 Blood Pressure 128/51 L Pulse Oximetry 97 100 97 Oxygen Delivery Nasal Cannula Room Air Oxygen Flow Rate 2 11/16/23 20:26 11/16/23 20:36 11/16/23 20:48 Temperature Pulse Rate 86 83 86 Respiratory Rate 18 18 Blood Pressure Pulse Oximetry 98 Oxygen Delivery Room Air Oxygen Flow Rate 11/16/23 21:19 11/16/23 20:00 11/16/23 20:00 Temperature Pulse Rate 92 80 80 Respiratory Rate 18 Blood Pressure Pulse Oximetry 98 Oxygen Delivery Room Air Oxygen Flow Rate 11/16/23 22:00 11/16/23 23:52 11/17/23 00:00 Temperature 36.4 C Pulse Rate 88 80 73 Respiratory Rate 16 Blood Pressure 112/43 L Pulse Oximetry 99 Oxygen Delivery Oxygen Flow Rate 11/17/23 00:00 11/17/23 01:44 11/17/23 03:44 Temperature 36.8 C Pulse Rate 73 68 77 Respiratory Rate 16 16 Blood Pressure 134/59 L Pulse Oximetry 99 97 Oxygen Delivery Room Air Oxygen Flow Rate 11/17/23 04:00 11/17/23 04:00 11/17/23 05:34 Temperature Pulse Rate 78 78 68 Respiratory Rate 16 Blood Pressure Pulse Oximetry 97 Oxygen Delivery Room Air Oxygen Flow Rate 11/17/23 08:00 11/17/23 08:14 11/17/23 08:14 Temperature 37.2 C Pulse Rate 83 89 Respiratory
[2023-11-17] MEDS: INSULIN ASPART (*BKC) 100 UNITS/ML SUB-Q ×3 (12:06→20:25)
[2023-11-17] MEDS: DOXYCYCLINE 100 MG/NS 100 ML 100 MG/100 ML BAG IVPB (13:00)
[2023-11-17 16:28] LABS: Glucose Point of Care 232 mg/dl (65-105)
[2023-11-17 16:29] LABS: Glucose Point of Care 241 mg/dl (65-105)
[2023-11-17 19:59] LABS: Glucose Point of Care 278 mg/dl (65-105)
[2023-11-17] MEDS: PRAVASTATIN SODIUM 20 MG TABLET 40 MG PO (20:23)
[2023-11-17] MEDS: busPIRone HCL 5 MG TABLET 10 MG PO (20:23)
[2023-11-17] MEDS: ACETAMINOPHEN 500 MG TABLET 1000 MG PO (20:24)
[2023-11-18] VITALS (15 sets, daily range): BP systolic 144–174; BP diastolic 51–147; PULSE 74–101; RESP 14–18; TEMP 36.7–36.9; O2SAT 95–98
[2023-11-18] MEDS: DOXYCYCLINE 100 MG/NS 100 ML 100 MG/100 ML BAG IVPB ×2 (00:02→11:47)
[2023-11-18 07:25] LABS: Glucose Point of Care 176 mg/dl (65-105)
[2023-11-18] MEDS: ALBUTEROL SULFATE NEB 2.5 MG/3 ML INH INHALATION ×2 (07:29→13:23)
[2023-11-18 08:04] LABS: Protein, Total 4.9 g/dL (6.1-8.1)
[2023-11-18 08:08] LABS: Hematocrit 27.3 % (37.0-47.0); Hemoglobin 8.7 g/dL (12.0-15.0); Mean Corpuscular HGB Conc 31.9 g/dl (32-36); Mean Corpuscular Hemoglobin 29.1 pg (26-34); Mean Corpuscular Volume 91.3 fl (80-100); Mean Platelet Volume 11.2 fl (7.4-10.4); Platelet Count Result 158 k/mm3 (150-375); Red Blood Count 2.99 M/mm3 (4.2-5.4); White Blood Count 8.1 K/mm3 (4.5-10.0)
[2023-11-18] MEDS: cefTRIAXone 2 GM/NS 100 ML 2 GM/100 ML BAG IVPB (08:10)
[2023-11-18] MEDS: ENOXAPARIN 40 MG/0.4 ML SYRINGE SUB-Q (08:10)
[2023-11-18] MEDS: CITALOPRAM HYDROBROMIDE 20 MG TABLET 40 MG PO (08:11)
[2023-11-18] MEDS: METOPROLOL TARTRATE 25 MG TABLET PO (08:11)
[2023-11-18] MEDS: busPIRone HCL 5 MG TABLET PO (08:11)
[2023-11-18 08:28] LABS: Alanine Aminotransferase 83 U/L (6-35); Alkaline Phosphatase 98 U/L (38-126); Anion Gap 5 mmol/L (4-12); Aspartate Amino Transferase 69 U/L (14-36); Bilirubin,Total 0.2 mg/dL (0.2-1.3); Blood Urea Nitrogen 15 mg/dL (7-17); Calcium 8.9 mg/dL (8.4-10.2); Carbon Dioxide 23 mmol/L (22-30); Chloride 110 mmol/L (98-107); Estimated Glomerular Filt Rate > 60; Glucose 169 mg/dL (65-110); Potassium 4.1 mmol/L (3.4-5.0); Sodium 138 mmol/L (137-145)
--- NOTE | 2023-11-18 10:21 | PM.PNPUL ---
Progress Note: A&P Assessment and Plan (1) Lytic lesion of bone on x-ray: Code(s): M89.9 - Disorder of bone, unspecified Status: Acute (2) Sepsis: Code(s): A41.9 - Sepsis, unspecified organism Status: Acute Assessment and Plan: Respiratory status stable. She has no new respiratory symptoms. Laboratory results improved since yesterday. She has no leukocytosis. Creatinine back into the normal range. Platelets now in normal range. Total bicarbonate is back up today. She has no significant hypernea on exam. Chest x-ray showed no evidence of pneumonia Plan. Respiratory status stable. Continue with DVT prophylaxis. (3) Type 2 diabetes mellitus without complications: Code(s): E11.9 - Type 2 diabetes mellitus without complications Status: Acute Subjective Date/time seen: 11/18/23 10:21 Interval history: Patient has a family who was also in the room today stated that she was confused last time. Patient has no new respiratory symptoms. She remains on room air. Underwent chest x-ray earlier today. Review of Systems Review of Systems: All systems reviewed & are unremarkable except as noted in HPI and below (HPI and below) Exam Narrative: GENERAL APPEARANCE: Well developed, well nourished, alert and cooperative, and appears to be in mild respiratory distress while receiving nebulized short-acting bronchodilators SKIN: Inspection of the skin reveals no rashes, ulcerations or petechiae. HEENT: Sclerae anicteric and conjunctivae pink and moist. Extraocular movements were intact and pupils were equal, round, and reactive to light. NECK: Supple. There was no thyroid enlargement, and no tenderness, or masses were felt. CHEST: Normal AP diameter and normal contour without any kyphoscoliosis. LUNGS: Clear lungs bilaterally no wheezing CARDIAC: Tachycardia, normal heart sounds no murmurs ABDOMEN: Soft and nontender with normal bowel sounds. There was no organomegaly. LYMPH NODES: No lymphadenopathy was appreciated in the neck.. EXTREMITIES: No cyanosis, clubbing or edema. NEUROLOGIC: Alert and oriented x 3. Normal affect. Objective Data Vital Signs Vital Signs: Vital Signs - 24 hr 11/17/23 12:00 11/17/23 14:00 11/17/23 14:32 Temperature 37.2 C Pulse Rate 89 88 89 Respiratory Rate 20 20 Blood Pressure 113/52 L Pulse Oximetry 99 Oxygen Delivery Fraction of Inspired Oxygen 11/17/23 16:00 11/17/23 16:00 11/17/23 17:48 Temperature 37.4 C Pulse Rate 97 98 109 H Respiratory Rate 18 Blood Pressure 144/63 H Pulse Oximetry 95 Oxygen Delivery Fraction of Inspired Oxygen 11/17/23 18:07 11/17/23 20:13 11/17/23 20:24 Temperature 38.0 C H Pulse Rate 101 H 98 82 Respiratory Rate 18 Blood Pressure 143/49 H Pulse Oximetry 94 Oxygen Delivery Fraction of Inspired Oxygen 11/17/23 20:24 11/17/23 21:02 11/17/23 21:05 Temperature 38.0 C H Pulse Rate 85 85 Respiratory Rate 20 Blood Pressure Pulse Oximetry 93 Oxygen Delivery Room Air Fraction of Inspired Oxygen 11/17/23 21:13 11/17/23 20:00 11/17/23 20:00 Temperature Pulse Rate 86 94 94 Respiratory Rate 20 20 Blood Pressure Pulse Oximetry 93 Oxygen Delivery Room Air Fraction of Inspired Oxygen 11/17/23 22:00 11/17/23 21:20 11/17/23 23:42 Temperature 37.7 C H 38.1 C H Pulse Rate 84 85 Respiratory Rate 18 Blood Pressure 110/47 L Pulse Oximetry 95 Oxygen Delivery Fraction of Inspired Oxygen 11/18/23 00:00 11/18/23 00:00 11/18/23 02:00 Temperature Pulse Rate 77 77 82 Respiratory Rate 18 Blood Pressure Pulse Oximetry 95 Oxygen Delivery Room Air Fraction of Inspired Oxygen 11/18/23 04:00 11/18/23 04:00 11/18/23 05:31 Temperature 36.7 C Pulse Rate 85 85 92 Respiratory Rate 18 18 Blood Pressure 169/71 H Pulse Oximetry 95 95 Oxygen Delivery Room Air Fraction of Inspired Oxygen 11/17
[2023-11-18 11:28] LABS: Glucose Point of Care 309 mg/dl (65-105)
[2023-11-18] MEDS: INSULIN ASPART (*BKC) 100 UNITS/ML SUB-Q (11:52)
--- NOTE | 2023-11-18 12:08 | PM.DS ---
DS: Admitting Diagnosis Discharge Date 11/18/2023 Admitting Diagnosis SOB DS: Discharge Diagnosis Discharge Diagnosis (1) Febrile illness: Code(s): R50.9 - Fever, unspecified Status: Acute (2) AMS (altered mental status): Code(s): R41.82 - Altered mental status, unspecified Status: Acute (3) Type 2 diabetes mellitus without complications: Code(s): E11.9 - Type 2 diabetes mellitus without complications Status: Acute (4) Essential hypertension: Code(s): I10 - Essential (primary) hypertension Status: Acute (5) Chronic anemia: Code(s): D64.9 - Anemia, unspecified Status: Acute Assessment and Plan: continue to monitor (6) Mixed hyperlipidemia: Code(s): E78.2 - Mixed hyperlipidemia Status: Acute (7) Anxiety: Code(s): F41.9 - Anxiety disorder, unspecified Status: Acute (8) Lytic lesion of bone on x-ray: Code(s): M89.9 - Disorder of bone, unspecified Status: Acute Assessment and Plan: Consulted Oncology (9) 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 Patient was brought to the emergency room due to lethargy, congestion, shortness of breath, fevers, generalized malaise body aches and pains for 4-5 days. Patient denies any nausea, vomiting, abdominal pain, diarrhea, pain or burning with urination has had some productive cough of greenish sputum. in emergency room preliminary workup has been essentially Low yielding. patient tested negative for influenza type A influenza type B COVID and RSV. a CT of chest abdomen and pelvis was significant for lytic lesions. patient has been admitted for further evaluation management and treatment. 11/14: Patient was evaluated at the bedside. Discussed with her daughter who provided the medical history. Patient lives in her home by herself and her daughter lives next door. Baseline patient does all her ADLs by herself but lately she has shortness of breath which is bothering her for a few months. Patient does not have any known cardiac disease other than the hypertension and diabetes mellitus. Chest Abdominal pelvic CT revealed granulomatous disease and a lytic lesion. In regards to the granulomatous disease pulmonology is consulted who believes current the current patient's symptoms are not related to the granulomatous disease. Ordered QuantiFERON TB test to rule out any tuberculosis disease. In regards to the lytic lesions Dr. Aguirre has been consulted. Since there is no AG likely torres of DKA is on least differential even though her urinary tract infection can cause DKA. In regards to her shortness of breath to rule out any cardiac causes ordered echocardiogram. Also ordered a lower extremity ultrasound to rule out any DVT. Patient has low potassium 2.8. Repleted with 60 mEq and with a magnesium of 2 g. Patient lactic acid has been trending down to 6.7 -3.9. Repeat lactic acid at 9:00 p.m. tonight. Patient received a bolus infusion in the morning. In regards to the shortness of breath prefer gentle fluid resuscitation. Patient is currently on ceftriaxone, vancomycin and doxycycline. A WBCs of 6.6., blood pressure 113/55, pulse 79, respiratory rate of 16, oxygen saturation 97% on 3 L. Blood culture and urine culture is pending and if necessary broad-spectrum antibiotic will be considered. 11/15: No acute events overnight. Currently breathing in the room air with a 96% saturation. Pending bone survey x-ray to rule out multiple myeloma. Yesterday there were episodes of hyperglycemia after admission since no initiation of anti diabetic regimen. Sta
[2023-11-18] MEDS: hydrALAZINE HCL 20 MG/ML VIAL 10 MG IV PUSH (12:29)
[2023-11-18 13:24] LABS: NIL 0.51 IU/mL; Quantiferon TB Plus, 1T NEGATIVE (NEGATIVE); TB1-NIL 0.07 IU/mL; TB2-NIL 0.09 IU/mL
[2023-11-21 19:48] LABS: Immunofixation, Serum Normal pattern.
[2023-11-22 15:14] LABS: Kappa\\Lambda Light Chains 1.04 (0.26-1.65); Lambda Light Chain 18.7 mg/L (5.7-26.3)
[2023-11-27 09:29] LABS: Albumin 2.6 g/dL (3.8-4.8); Alpha 1 Globulin 0.4 g/dL (0.2-0.3); Alpha 2 Globulin 0.8 g/dL (0.5-0.9); Beta 1 Globulin 0.4 g/dL (0.4-0.6); Gamma Globulin 0.6 g/dL (0.8-1.7)
== END 2023-11-18 15:12 | disposition home or self-care (01) | DRG 864 ==
LOC: ANHED 19:50 → ANHIMU 22:24
PROVIDERS: Internal Medicine Hematology & Oncology; Physician Assistant; Admitting Provider Internal Medicine; Emergency Provider Emergency Medicine; PCP Family Medicine; Visit Provider General Practice
DX: R50.9 Fever, unspecified (principal); I10 Essential (primary) hypertension; J98.4 Other disorders of lung; M88.1 Osteitis deformans of vertebrae; D64.9 Anemia, unspecified; E87.6 Hypokalemia; E11.9 Type 2 diabetes mellitus without complications; E78.5 Hyperlipidemia, unspecified; F41.9 Anxiety disorder, unspecified; Z20.822 Contact with and (suspected) exposure to COVID-19
CPT/HCPCS: 36415; 36600; 70450; 71045; 71046; 71260; 74177; 77075; 80048; 80053; 81001; 82010; 82607; 82728; 82746; 82784; 82805; 82948; 83540; 83550; 83605; 83615; 83735; 83883; 84100; 84132; 84155; 84165; 84484; 85018; 85025; 85027; 85055; 85380; 85610; 85730; 86140; 86334; 86480; 87040; 87086; 87493; 87637; 87641; 93005; 93306; 93970; 94640; 96361; 96365; 96366; 96375; 97161; 99285; A9270; G0378; J0360; J0696; J1650; J1815; J3370; J3475; J7030; Q9967

== ENCOUNTER 2024-05-10 13:03 | Outpatient (CLI) | payer MEDICARE, OTHER, SELFPAY ==
--- OUTSIDE RECORDS SUMMARY | 2024-05-10 13:07 | XMS_ITS | Encounter Summary ---
Author Organization [facility] Address 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 Gender Identity Not on file Sexual Orientation Not on file documented as of this encounter Plan of Treatment Upcoming Encounters Date Type Department Care Team (Late st Contact Info) Description 05/13/2024 2:30 PM CDT Office Visit [facility] Oncology and Hematology - Ehsan [address] [facility] 200 [place] [address] [place] [address] [place] [address] [address] [place] [address] documented as of this encounter Visit Diagnoses Not on filedocumented in this encounter Care Teams Tobacco Checkout Clerk Relationship Specialty Start Date End Date Renato Emanuel MD [address] [facility] 120 [place] [address] PCP - General Family Practice 11/28/23 documented as of this encounter
--- OUTSIDE RECORDS SUMMARY | 2024-05-10 13:07 | XMS_ITS | Encounter Summary ---
Author Organization [facility] Address 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 Gender Identity Not on file Sexual Orientation Not on file documented as of this encounter Plan of Treatment Upcoming Encounters Date Type Department Care Team (Late st Contact Info) Description 05/13/2024 2:30 PM CDT Office Visit [facility] Oncology and Hematology - Ehsan [address] [facility] 200 [place] [address] [place] [address] [place] [address] [address] [place] [address] documented as of this encounter Visit Diagnoses Not on filedocumented in this encounter Care Teams Healthcare Interpreter Relationship Specialty Start Date End Date Renato Emanuel MD [address] [facility] 120 [place] [address] PCP - General Family Practice 11/28/23 documented as of this encounter
--- OUTSIDE RECORDS SUMMARY | 2024-05-10 13:07 | XMS_ITS | Encounter Summary ---
Author Organization [facility] Address 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 Gender Identity Not on file Sexual Orientation Not on file documented as of this encounter Plan of Treatment Upcoming Encounters Date Type Department Care Team (Late st Contact Info) Description 05/13/2024 2:30 PM CDT Office Visit [facility] Oncology and Hematology - Ehsan [address] [facility] 200 [place] [address] [place] [address] [place] [address] [address] [place] [address] documented as of this encounter Visit Diagnoses Not on filedocumented in this encounter Care Teams Vegetable Tier Relationship Specialty Start Date End Date Renato Emanuel MD [address] [email or web address] 120 [place] [address] PCP - General Family Practice 11/28/23 documented as of this encounter
--- OUTSIDE RECORDS SUMMARY | 2024-05-10 13:07 | XMS_ITS | Encounter Summary ---
Author Organization [facility] Address [address] [facility] Attn: Epic Prelude ADT [place] [address] Care Team Providers Care Milanese Knitting Machine Operator Name Role Phone Renato Emanuel MD Primary Care Provider [phone] Encounter Details Date Type Department Care Team (Late st Contact Info) Description 06/07/1995 Outpatient Historical Rolan Sorto MD NO ADDRESS ON FILE Social History Tobacco Use Types Packs/Day Years Used Date Smoking Tobacco: Never Assessed Comments Unknown Sex and Gender Information Value Date Recorded Sex Assigned at Not on file 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 Gender Identity Not on file Sexual Orientation Not on file documented as of this encounter Plan of Treatment Upcoming Encounters Date Type Department Care Team (Late st Contact Info) Description 05/13/2024 2:30 PM CDT Office Visit [facility] Oncology and Hematology - Ehsan [address] [facility] 200 [place] [address] Chava Costa MD [address] [facility] [address] [place] [address] documented as of this encounter Visit Diagnoses Not on filedocumented in this encounter Care Teams [place]ese Knitting Machine Operator Relationship Specialty Start Date End Date Renato Emanuel MD [address] [place] [address] [place] [address] PCP - General Family Practice 11/28/23 documented as of this encounter
--- OUTSIDE RECORDS SUMMARY | 2024-05-10 13:07 | XMS_ITS | Encounter Summary ---
Author Organization [facility] Address 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 Gender Identity Not on file Sexual Orientation Not on file documented as of this encounter Plan of Treatment Upcoming Encounters Date Type Department Care Team (Late st Contact Info) Description 05/13/2024 2:30 PM CDT Office Visit [facility] Oncology and Hematology - Ehsan [address] [facility] 200 [place] [address] [place] [address] [place] [address] [address] [place] [address] documented as of this encounter Visit Diagnoses Not on filedocumented in this encounter Care Teams Alternative Energy Technician Relationship Specialty Start Date End Date Renato Emanuel MD [address] [facility] 120 [place] [address] PCP - General Family Practice 11/28/23 documented as of this encounter
--- OUTSIDE RECORDS SUMMARY | 2024-05-10 13:07 | XMS_ITS | Encounter Summary ---
Author Organization [facility] Address 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 Gender Identity Not on file Sexual Orientation Not on file documented as of this encounter Plan of Treatment Upcoming Encounters Date Type Department Care Team (Late st Contact Info) Description 05/13/2024 2:30 PM CDT Office Visit [facility] Oncology and Hematology - Ehsan [address] [facility] 200 [place] [address] [place] [address] [place] [address] [address] [place] [address] documented as of this encounter Visit Diagnoses Not on filedocumented in this encounter Care Teams Csr Relationship Specialty Start Date End Date Renato Emanuel MD [address] [facility] 120 [place] [address] PCP - General Family Practice 11/28/23 documented as of this encounter
--- OUTSIDE RECORDS SUMMARY | 2024-05-10 13:07 | XMS_ITS | Encounter Summary ---
Author Organization [facility] Address 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 200 [place] [address] [place] [address] [place] [address] [address] [place] [address] documented as of this encounter Visit Diagnoses Not on filedocumented in this encounter Care Teams Men'S Golf Coach Relationship Specialty Start Date End Date Renato Emanuel MD [address] [facility] 120 [place] [address] PCP - General Family Practice 11/28/23 documented as of this encounter
--- OUTSIDE RECORDS SUMMARY | 2024-05-10 13:07 | XMS_ITS | Encounter Summary ---
Author Organization [facility] Address 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 Gender Identity Not on file Sexual Orientation Not on file documented as of this encounter Plan of Treatment Upcoming Encounters Date Type Department Care Team (Late st Contact Info) Description 05/13/2024 2:30 PM CDT Office Visit [facility] Oncology and Hematology - Ehsan [address] [facility] 200 [place] [address] [place] [address] [place] [address] [address] [place] [address] documented as of this encounter Visit Diagnoses Not on filedocumented in this encounter Care Teams Invertebrate Paleontologist Relationship Specialty Start Date End Date Renato Emanuel MD [address] [facility] 120 [place] [address] PCP - General Family Practice 11/28/23 documented as of this encounter
--- OUTSIDE RECORDS SUMMARY | 2024-05-10 13:07 | XMS_ITS | Encounter Summary ---
Author Organization [facility] Address 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 Gender Identity Not on file Sexual Orientation Not on file documented as of this encounter Plan of Treatment Upcoming Encounters Date Type Department Care Team (Late st Contact Info) Description 05/13/2024 2:30 PM CDT Office Visit [facility] Oncology and Hematology - Ehsan [address] [facility] 200 [place] [address] [place] [address] [place] [address] [address] [place] [address] documented as of this encounter Visit Diagnoses Not on filedocumented in this encounter Care Teams Natural Gas Treating Unit Operator Relationship Specialty Start Date End Date Renato Emanuel MD [address] [facility] 120 [place] [address] PCP - General Family Practice 11/28/23 documented as of this encounter
--- OUTSIDE RECORDS SUMMARY | 2024-05-10 13:07 | XMS_ITS | Encounter Summary ---
Author Organization [facility] Address [address] [place] [address] Care Team Providers Care Cable Television Line Technician Name Role Phone Renato Emanuel MD Primary Care Provider [phone] Encounter Details Date Type Department Care Team (Latest Contact Info) Description 04/08/2005 Outpatient Historical HIS [facility] SINCERE Sorto, Rolan Montoya MD NO ADDRESS ON FILE DIABETES MELLITUS TYPE II-UNCOMPL (CMS/HCC) (Primary Dx) Social History Tobacco Use Types Packs/Day Years Used Date Smoking Tobacco: Never Assessed Comments Unknown Sex and Gender Information Value Date Recorded Sex Assigned at Not on file Legal Sex Female 4:44 AM FILM BOOKER Gender Identity Not on file Sexual Orientation Not on file documented as of this encounter Plan of Treatment Upcoming Encounters Date Type Department Care Team (Late st Contact Info) Description 05/13/2024 2:30 PM CDT Office Visit [facility] Oncology and Hematology - [place]hs[place] [address] [facility] [address] [place] [address] Chava Costa MD [address] [facility] [address] [place] [address] documented as of this encounter Procedures Procedure Name Priority Date/Time Associated Diagnosis Comments TSH REFLEXIVE Routine 04/08/2005 7:55 AM FILM BOOKER CBC WITH DIFFERENTIAL Routine 04/08/2005 7:55 AM FILM BOOKER CBC WITH DIFFERENTIAL Routine 04/08/2005 7:55 AM FILM BOOKER URINALYSIS W/REFLEX MICROSCOPIC Routine 04/08/2005 7:55 AM FILM BOOKER T4 FREE Routine 04/08/2005 7:55 AM FILM BOOKER HEMOGLOBIN A1C Routine 04/08/2005 7:55 AM FILM BOOKER LIPID PANEL Routine 04/08/2005 7:55 AM FILM BOOKER COMPREHENSIVE METABOLIC PANEL Routine 04/08/2005 7:55 AM FILM BOOKER documented in this encounter Results * (ABNORMAL) URINALYSIS (04/08/2005 7:55 AM FILM BOOKER) COLOR UA Pale Yellow INTERFAC E SYSTEM CLARITY UA Clear Clear INTERFACE SYSTEM SPECIFIC GRAVITY UA 1.015 1.001 - 1.035 INTERFACE SYSTEM PH UA 5.0 5.0 - 8.0 INTERFACE SYSTEM LEUKOCYTE ESTERASE UA Trace(A) Negative INTERFACE SYSTEM NITRITE UA Negative Negative INTERFACE SYSTEM PROTEIN UA Negative Negative INTERFACE SYSTEM GLUCOSE UA Negative Negative INTERFACE SYSTEM KETONES UA Negative Negative INTERFACE SYSTEM UROBILINOGEN UA <1 <1 mg/dL INTE RFACE SYSTEM BILIRUBIN UA Negative Negative INTERFA CE SYSTEM BLOOD UA 2+(A) Negative INTERFACE SYSTEM WBC UA 1 0 - 5 /HPF INTERFACE SYSTEM RBC UA 1 0 - 4 /HPF INTERFACE SYSTEM Comment: Microscopic verified by repeat analysis. Suggest red cell hemolysis or interfering substance. EPITHELIAL CELLS, URINE 2-5 /HPF INTERFACE SYSTEM TRANSITIONAL EPI 0-2 /HPF INT ERFACE SYSTEM 04/08/2005 7:55 AM FILM BOOKER us Rolan Sorto MD URINE ORDERABLES Final Res ult INTERFACE SYSTEM Refer to clinic/hospital department * T4 FREE (04/08/2005 7:55 AM FILM BOOKER) T4 FREE 1.1 0.9 - 1.7 ng/dL INTERFACE SYSTEM 04/08/2005 7:55 AM FILM BOOKER us Rolan Sorto MD CHEMISTRY ORDERABLES Final Result INTERFACE SYSTEM Refer to clinic/hospital department * CBC WITH DIFFERENTIAL (04/08/2005 7:55 AM FILM BOOKER) NEUTROPHILS 58 45 - 70 % INTERFAC E SYSTEM LYMPHOCYTES 33 16 - 45 % INTERFAC E SYSTEM MONOCYTES 6 3 - 13 % INTERFACE SYSTEM EOSINOPHILS 2 0 - 7 % INTERFAC E SYSTEM BASOPHILS 0 0 - 2 % INTERFACE SYSTEM NEUTROPHIL ABSOLUTE 5.15 1.90 - 7.00 K/uL INTERFACE SYSTEM LYMPHOCYTE ABSOLUTE 2.93 0.70 - 4.50 K/uL INTERFACE SYSTEM MONOCYTE ABSOLUTE 0.56 0.10 - 1.30 K/uL INTERFACE SYSTEM EOSINOPHIL ABSOLUTE 0.21 0.00 - 0.70 K/uL INTERFACE SYSTEM BASOPHILS ABSOLUTE 0.04 0.00 - 0.20 K/uL INTERFACE SYSTEM 04/08/2005 7:55 AM FILM BOOKER Rolan Sorto MD HEMATOLOGY ORDERABLES Shiloh l Result Performing Organization Address [facility] Phone Number INTERFACE SYSTEM Refer to clinic/hospital department * (ABNORMAL) CBC WITH DIFFERENTIAL (04/08/2005 7:55 AM FILM BOOKER) WBC 8.9 4.0 - 9.8 K/uL INTERFACE SYSTEM RBC 4.13 3.90 - 4.90 M/uL INTERFACE SYSTEM HEMOGLOBIN 11.7(L) 11.8 - 14.8 g/dL INTERFACE SYSTEM HEMATOCRIT 37.3 35.5 - 44.0 % INTERFACE SYSTEM MCV 90.3 82.0 - 99.0 fL INTERFACE SYSTEM MCH 28.3 27.2 - 32.6 pg INTERFACE SYSTEM MCHC 31.4(L) 31.5 - 35.5 % INTERFACE SYSTEM RDW 14.2 11.5 - 14.5 % INTERFACE SYSTEM RDW-STDEV 46.8 37.1 - 48.7 fL INTERFACE SYSTEM PLATELETS 349 140 - 350 K/uL INTERFACE SYSTEM MPV 10.8 9.3 - 12.4 fL INTERFACE SYSTEM 04/08/2005 7:55 AM FILM BOOKER Rolan Sorto MD HEMATOLOGY ORDERABLES Shiloh l Result Performing Organization Address [facility] Phone Number INTERFACE SYSTEM Refer to clinic/hospital department * (ABNORMAL) TSH REFLEXIVE (04/08/2005 7:55 AM FILM BOOKER) TSH 6.85(H) 0.27 - 4.20 uU/mL INTERFACE SYSTEM 04/08/2005 7:55 AM FILM BOOKER Rolan Sorto MD CHEMISTRY ORDERABLES Final Result Performing Organization Address [facility] Phone Number INTERFACE SYSTEM Refer to clinic/hospital department * (ABNORMAL) HEMOGLOBIN A1C (04/08/2005 7:55 AM FILM BOOKER) HEMOGLOBIN A1C 6.8(H) 3.9 - 6.1 % of Hgb INTERFACE SYSTEM GLUCOSE, MEAN BLOOD 140 mg/dL INTERFACE SYSTEM 04/08/2005 7:55 AM FILM BOOKER Rolan Sorto MD CHEMISTRY ORDERABLES Final Result Performing Organization Address [facility] Phone Number INTERFACE SYSTEM Refer to clinic/hospital department * (ABNORMAL) LIPID PANEL (04/08/2005 7:55 AM FILM BOOKER) LIPID PANEL COMMENT See below INTERFACE SYSTEM Comment: Adult ATP III Classifications: Cholesterol (mg/dL) Triglyceride (mg/dL) Desirable <200 Normal <150 Borderline 200 - 239 Borderline High 150 - 199 High >=240 High 200 - 499 Very High >=500 HDL Cholesterol (mg/dL) LDL (mg/dL) Low (increased risk) <40 Optimal <100 High (reduced risk) >=60 Near or above optimal 100 - 129 Borderline 130 - 159 High 160 - 189 Very High >=190 LDL calculation is not accurate if Triglycerides are greater than 400 mg /dL Pediatric NCEP Classifications: Cholesterol(<20 years),(mg/dL) Triglyceride Desirable <170 Pediatric classification Borderline 170 - 199 not defined. High >=200 HDL (<5 years) LDL (mg/dL) No Reference Range Established Desirable <110 Borderline 110 - 129 High >=130 CHOLESTEROL 151 100 - 199 mg/dL INTERFACE SYSTEM TRIGLYCERIDE 267(H) 10 - 149 mg/dL INTERFACE SYSTEM HDL 56 40 - 59 mg/dL INTERFACE SYSTEM LDL CALCULATED 42 <=99 mg/dL INTERFACE SYSTEM CHOL/HDL RATIO 2.7 2.0 - 5.0 INTER FACE SYSTEM Comment:See interpretive mara a section for risk classifications. 04/08/2005 7:55 AM FILM BOOKER Rolan Sorto MD CHEMISTRY ORDERABLES Final Result Performing Organization Address [facility] de Phone Number INTERFACE SYSTEM Refer to clinic/hospital department * (ABNORMAL) COMPREHENSIVE METABOLIC PANEL (04/08/2005 7:55 AM FILM BOOKER) GLUCOSE 190(H) 65 - 109 mg/dL INTERFACE SYSTEM CREATININE 0.9 0.4 - 1.2 mg/dL INTERFACE SYSTEM CALCIUM 9.5 8.6 - 10.2 mg/dL INTERFACE SYSTEM AST 20 12 - 32 U/L INTERFACE SYSTEM ALKALINE PHOSPHATASE 113(H) 35 - 104 U/L INTERFACE SYSTEM BILIRUBIN TOTAL 0.3 0.2 - 1.0 mg/dL INTERFACE SYSTEM ALBUMIN 4.2 3.4 - 4.8 g/dL INTERFACE SYSTEM TOTAL PROTEIN 7.6 6.3 - 8.6 g/dL INTERFACE SYSTEM ALT 15 0 - 31 U/L INTERFACE SYSTEM BUN 17 6 - 20 mg/dL INTERFACE SYSTEM SODIUM 141 135 - 145 mmol/L INTERFACE SYSTEM POTASSIUM 3.9 3.5 - 4.9 mmol/L INTERFACE SYSTEM CHLORIDE 103 96 - 108 mmol/L INTERFACE SYSTEM CO2 31(H) 22 - 30 mmol/L INTERFACE SYSTEM 04/08/2005 7:55 AM FILM BOOKER Rolan Sorto MD CHEMISTRY ORDERABLES Final Result Performing Organization Address [facility] de Phone Number INTERFACE SYSTEM Refer to clinic/hospital department documented in this encounter Visit Diagnoses Diagnosis Type II or unspecified type diabetes mellitus without mention of complication, not stated as uncontrolled- Primary documented in this encounter Care Teams Cable Television Line Technician Relationship Specialty Start Date End Date Renato Emanuel MD [address] [facility] [address] [place] [address] PCP - General Family Practice 11/28/23 documented as of this encounter
--- OUTSIDE RECORDS SUMMARY | 2024-05-10 13:07 | XMS_ITS | Encounter Summary ---
Author Organization [facility] Address [address] [facility] Attn: Epic Prelude ADT [place] [address] Care Team Providers Care Fan Blade Aligner Name Role Phone Renato Emanuel MD Primary Care Provider [phone] Encounter Details Date Type Department Care Team (Late st Contact Info) Description 06/25/1999 Outpatient Historical Rolan Sorto MD NO ADDRESS ON FILE Social History Tobacco Use Types Packs/Day Years Used Date Smoking Tobacco: Never Assessed Comments Unknown Sex and Gender Information Value Date Recorded Sex Assigned at Not on file Legal Sex Female 4:44 AM INFORMATION RESOURCE CONSULTANT Gender Identity Not on file Sexual Orientation Not on file documented as of this encounter Plan of Treatment Upcoming Encounters Date Type Department Care Team (Late st Contact Info) Description 05/13/2024 2:30 PM CDT Office Visit [facility] Oncology and Hematology - Ehsan [address] [facility] [address] [place] [address] Chava Costa MD [address] [facility] [address] [place] [address] documented as of this encounter Visit Diagnoses Not on filedocumented in this encounter Care Teams Fan Blade Aligner Relationship Specialty Start Date End Date Renato Emanuel MD [address] [facility] [address] [place] [address] PCP - General Family Practice 11/28/23 documented as of this encounter
--- OUTSIDE RECORDS SUMMARY | 2024-05-10 13:07 | XMS_ITS | Encounter Summary ---
Author Organization [facility] Address [address] [facility] Attn: Epic Prelude ADT [place] [address] Care Team Providers Care Striper Spray Gun Name Role Phone Renato Emanuel MD Primary Care Provider [phone] Encounter Details Date Type Department Care Team (Late st Contact Info) Description 07/21/1995 Outpatient Historical Rolan Sorto MD NO ADDRESS ON FILE Social History Tobacco Use Types Packs/Day Years Used Date Smoking Tobacco: Never Assessed Comments Unknown Sex and Gender Information Value Date Recorded Sex Assigned at Not on file Legal Sex Female 4:44 AM DIRECTOR TECHNICAL Gender Identity Not on file Sexual Orientation Not on file documented as of this encounter Plan of Treatment Upcoming Encounters Date Type Department Care Team (Late st Contact Info) Description 05/13/2024 2:30 PM CDT Office Visit [facility] Oncology and Hematology - [place]hsan [address] [facility] [address] [place] [address] Chava Costa MD [address] [facility] [address] [place] [address] documented as of this encounter Visit Diagnoses Not on filedocumented in this encounter Care Teams Striper Spray Gun Relationship Specialty Start Date End Date Renato Emanuel MD [address] [facility] [address] [place] [address] PCP - General Family Practice 11/28/23 documented as of this encounter
--- OUTSIDE RECORDS SUMMARY | 2024-05-10 13:07 | XMS_ITS | Encounter Summary ---
Author Organization [facility] Address [address] [facility] Attn: Epic Prelude ADT [place] [address] Care Team Providers Care Dock Supervisor Name Role Phone Renato Emanuel MD Primary Care Provider [phone] Encounter Details Date Type Department Care Team (Late st Contact Info) Description 07/10/1992 Outpatient Historical Rolan Sorto MD NO ADDRESS ON FILE Social History Tobacco Use Types Packs/Day Years Used Date Smoking Tobacco: Never Assessed Comments Unknown Sex and Gender Information Value Date Recorded Sex Assigned at Not on file Legal Sex Female 4:44 AM HOME HEALTH TRAVEL PT Gender Identity Not on file Sexual Orientation Not on file documented as of this encounter Plan of Treatment Upcoming Encounters Date Type Department Care Team (Late st Contact Info) Description 05/13/2024 2:30 PM CDT Office Visit [facility] Oncology and Hematology - [place]hsan [address] [facility] [address] [place] [address] Chava Costa MD [address] [facility] [address] [place] [address] documented as of this encounter Visit Diagnoses Not on filedocumented in this encounter Care Teams Dock Supervisor Relationship Specialty Start Date End Date Renato Emanuel MD [address] [facility] [address] [place] [address] PCP - General Family Practice 11/28/23 documented as of this encounter
--- OUTSIDE RECORDS SUMMARY | 2024-05-10 13:07 | XMS_ITS | Encounter Summary ---
Author Organization [facility] Address [address] [place] [address] Care Team Providers Care Senior Trial Attorney Name Role Phone Renato Emanuel MD Primary Care Provider [phone] Encounter Details Date Type Department Care Team (Late Contact Info) Description 11/07/2001 Outpatient Historical HIS [facility] SINCERE Sorto, Rolan Montoya MD NO ADDRESS ON FILE Social History Tobacco Use Types Packs/Day Years Used Date Smoking Tobacco: Never Assessed Comments Unknown Sex and Gender Information Value Date Recorded Sex Assigned at Not on file Legal Sex Female 4:44 AM SLIP CASTER Gender Identity Not on file Sexual Orientation Not on file documented as of this encounter Plan of Treatment Upcoming Encounters Date Type Department Care Team (Late st Contact Info) Description 05/13/2024 2:30 PM CDT Office Visit [facility] Oncology and Hematology - Ehsan [address] [facility] [address] [place] [address] [place] [address] [place] [address] [address] [place] [address] documented as of this encounter Visit Diagnoses Not on filedocumented in this encounter Care Teams Senior Trial Attorney Relationship Specialty Start Date End Date Renato Emanuel MD [address] [facility] [address] [place] [address] PCP - General Family Practice 11/28/23 documented as of this encounter
--- OUTSIDE RECORDS SUMMARY | 2024-05-10 13:07 | XMS_ITS | Clinical Summary ---
Author Organization [employer] [facility] Address [address] [place] [address] Care Team Providers Care Pairer Inspector Name Role Phone Renato Emanuel MD Primary Care Provider Allergies No known active allergies Medications busPIRone (BUSPAR) 5 mg tablet Take 1 Tablet by mouth 3 times daily. 09/21/19 24 Active CeleXA 20 mg tablet Take 40 mg by mouth daily. 11/30/19 12 Active glipiZIDE (GLUCOTROL XL) 5 mg Extended Release 24 hour tablet Take 10 mg by mouth daily with breakfast. 01/19/20 12 Active hydroCHLOROthi azide 25 mg tablet Take 25 mg by mouth daily. 02/08/19 13 Active losartan (COZAAR) 50 mg tablet Take 100 mg by mouth daily. 12/12/19 12 Active metFORMIN (GLUCOPHAGE XR) 500 mg Extended Release 24 hour tablet Take 500 mg by mouth 3 times daily. 09/21/19 24 Active metoprolol tartrate (LOPRESSOR) 25 mg tablet Take 25 mg by mouth daily. 04/06/19 12 Active pravastatin (PRAVACHOL) 20 mg tablet Take 40 mg by mouth daily. 01/09/20 12 Active loratadine (CLARITIN) 10 mg tablet Take 10 mg by mouth daily. Active Syringe with Needle, Disp, (BD SafetyGlide Syringe) 1 mL 27 x 1/2 SyringeIndicat ions:Chronic anemia USE WITH B-12 INJECTIONS EVERY 2 WEEKS. 4 Each 1 05/04/19 25 Active cyanocobalamin (VITAMIN B-12) 1,000 mcg/mL SolutionIndica tions:Chronic anemia ADMINISTER 1 ML(1000 MCG) IN THE MUSCLE EVERY 2 WEEKS 4 mL 1 05/04/19 Active cyanocobalamin (VITAMIN B-12) 1,000 mcg/mL SolutionIndica tions:Chronic anemia Inject 1 mL (1,000 mcg) by intramuscular injection every 2 weeks. 4 mL 1 12/14/19 24 2024 Discontinued Syringe with Needle, Disp, 1 mL 27 x 1/2 SyringeIndicat ions:Chronic anemia Use with B12 script. 4 Each 1 12/14/19 24 2024 Discontinued Active Problems No known active problems Encounters Date Type Department Care Team Description 05/03/2024 Refill [facility] Oncology and Hematology - [place]hsan [address] [place] [address] Heidi Rosado MD Chronic anemia 03/26/2024 External Device Data STL ABSTRACTION Provider, Abstract 02/29/2024 External Device Data STL ABSTRACTION Provider, Abstract 02/27/2024 External Device Data STL ABSTRACTION Provider, Abstract 02/20/2024 External Device Data STL ABSTRACTION Provider, Abstract from Last 3 Months Family History Medical History Relation Name Comments No Known Problems Brother 1 Diabetes Brother 2 Heart Disease Child 1 No Known Problems Child 2 Heart Disease Father No Known Problems Mother No Known Problems Sister 1 Esophageal Cancer Sister 2 Diabetes Sister 3 Relation Name Status Comments Brother 1 Alive Brother 2 Alive Child 1 Alive Child 2 Alive Father Mother Sister 1 Alive Sister 2 Sister 3 Alive Social History Tobacco Use Types Packs/Day Years Used Date Smoking Tobacco: Never Smokeless Tobacco: Never Tobacco Cessation:Counseling Given: Not Answered Alcohol Use Standard Drinks/Week Comments Never 0 (1 standard drink = 0.6 oz pur e alcohol) Comments Unknown Sex and Gender Information Value Date Recorded Sex Assigned at Not on file Legal Sex Female 4:44 AM OUTSIDE SALESPERSON Gender Identity Not on file Sexual Orientation Not on file Last Filed Vital Signs Vital Sign Reading Time Taken Comments Blood Pressure 138/78 01/11/2024 3:25 PM OUTSIDE SALESPERSON Pulse 76 01/11/2024 3:25 PM OUTSIDE SALESPERSON Temperature 36.6 C (97.8 F) 01/11/2024 3:25 PM OUTSIDE SALESPERSON Respiratory Rate 14 01/11/2024 3:25 PM OUTSIDE SALESPERSON Oxygen Saturation 95% 01/11/2024 3:25 PM OUTSIDE SALESPERSON Inhaled Oxygen Concentration - - Weight 52 kg (114 lb 9.6 oz) 01/11/2024 3:25 PM OUTSIDE SALESPERSON Height 139.7 cm (4' 7 ) 11/24/2023 1:09 PM CDT Body Mass Index 26.64 11/24/2023 1:09 PM CDT Plan of Treatment Upcoming Encounters Date Type Department Care Team (Late st Contact Info) Description 05/13/2024 2:30 PM CDT Office Visit [facility] Oncology and Hematology - [place] [address] [facility] [address] [place] [address] Chava Costa MD [address] [facility] [address] [place] [address] Health Maintenance Due Date Last Done Comments DIABETES ANNUAL FOOT EXAM 06/25/1961 DIABETES ANNUAL RETINAL EXAM 06/25/1961 DIABETES MICROALBUMIN ANNUAL SCREEN 06/25/1961 DTAP/TDAP/TD VACCINES (1 - Tdap) 06/25/1962 PNEUMOCOCCAL VACCINE 50+ YEA RS (1 of 2 - PCV) 06/25/1962 Traditional Medicare (ACO) A nnual Wellness Visit 06/25/1962 ZOSTER VACCINE (1 of 2) 06/25/1993 DIABETES HBA1C Q 6 MONTHS 09/04/20072007, 04/08/2005, 08/24/2004 LDL CHOLESTEROL ANNUAL 03/06/2008 8, 03/25/2006, 04/08/2005, Additional history exists OSTEOPOROSIS SCREENING 06/25/2008 RSV VACCINE (60+ or ) (1 - 1-dose 75+ series) 06/25/2018 INFLUENZA VACCINE (#1) 2023 Procedures Procedure Name Priority Date/Time Associated Diagnosis Comments LIPID PANEL Routine 03/06/2007 10:35 AM OUTSIDE SALESPERSON HEMOGLOBIN A1C Routine 03/06/2007 10:35 AM OUTSIDE SALESPERSON from Last 3 Months or Most Recently Relevant to Health Maintenance Results * (ABNORMAL) HEMOGLOBIN A1C (03/06/2007 10:35 AM OUTSIDE SALESPERSON) HEMOGLOBIN A1C 7.4(H) 4.1 - 6.1 % of Hgb INTERFACE SYSTEM GLUCOSE, MEAN BLOOD 186 mg/dL INTERFACE SYSTEM 03/06/2007 10:3 5 AM OUTSIDE SALESPERSON us Rolan Sorto MD CHEMISTRY ORDERABLES Edite d INTERFACE SYSTEM Refer to clinic/hospital department * LIPID PANEL (03/06/2007 10:35 AM OUTSIDE SALESPERSON) CHOLESTEROL 166 100 - 199 mg/dL INTERFACE SYSTEM TRIGLYCERIDE 118 10 - 149 mg/dL INTERFACE SYSTEM HDL 54 40 - 59 mg/dL INTERFACE SYSTEM CHOL/HDL RATIO 3.1 2.0 - 5.0 INTER FACE SYSTEM LDL CALCULATED 88 <=99 mg/dL INTERFACE SYSTEM LIPID PANEL COMMENT See Below INTERFACE SYSTEM Comment: The adult ATP and pediatric NCEP classifications for lipids are available on the [facility] Intranet at: [email or web address] Select: Lab Policies and Procedures,Current Select: Lipid Panel Interpretation 03/06/2007 10:3 5 AM OUTSIDE SALESPERSON us Rolan Sorto MD CHEMISTRY ORDERABLES Edite d Performing Organization Address City/[facility] Co de Phone Number INTERFACE SYSTEM Refer to clinic/hospital department from Last 3 Months or Most Recently Relevant to Health Maintenance Insurance MEDICARE PART A AND B Al[employer]ize Care Teams Pairer Inspector Relationship Specialty Start Date End Date Renato Emanuel MD [address] [facility] [address] [place] [address] PCP - General Family Practice 11/28/23
--- OUTSIDE RECORDS SUMMARY | 2024-05-10 13:07 | XMS_ITS | Encounter Summary ---
Author Organization [facility] Address [address] [place] [address] Care Team Providers Care Validation Intern Name Role Phone Renato Emanuel MD Primary Care Provider [phone] Encounter Details Date Type Department Care Team (Late Contact Info) Description 08/24/2004 Outpatient Historical [facility], [address] Rolan Sorto MD NO ADDRESS ON FILE Social History Tobacco Use Types Packs/Day Years Used Date Smoking Tobacco: Never Assessed Comments Unknown Sex and Gender Information Value Date Recorded Sex Assigned at Not on file Legal Sex Female 4:44 AM EXECUTIVE PILOT Gender Identity Not on file Sexual Orientation Not on file documented as of this encounter Plan of Treatment Upcoming Encounters Date Type Department Care Team (Late Contact Info) Description 05/13/2024 2:30 PM CDT Office Visit [facility] Oncology and Hematology - Ehsan [address] [facility] 200 [place] [address] Chava Costa MD [address] [facility] [address] [place] [address] documented as of this encounter Procedures Procedure Name Priority Date/Time Associated Diagnosis Comments HEMOGLOBIN A1C Routine 08/24/2004 9:30 AM CDT LIPID PANEL Routine 08/24/2004 9:30 AM CDT COMPREHENSIVE METABOLIC PANEL Routine 08/24/2004 9:30 AM CDT documented in this encounter Results * (ABNORMAL) HEMOGLOBIN A1C (08/24/2004 9:30 AM CDT) HEMOGLOBIN A1C 7.1(H) 3.9 - 6.1 % of Hgb INTERFACE SYSTEM Comment: Note: Analyzer upgraded from [employer] Variant to Variant II. No change in methodology. GLUCOSE, MEAN BLOOD 150 mg/dL INTERFACE SYSTEM 08/24/2004 9:30 AM CDT Rolan Sorto MD CHEMISTRY ORDERABLES Final Result INTERFACE SYSTEM Refer to clinic/hospital department * (ABNORMAL) LIPID PANEL (08/24/2004 9:30 AM CDT) CHOLESTEROL 156 100 - 199 mg/dL INTERFACE SYSTEM TRIGLYCERIDE 158(H) 10 - 149 mg/dL INTERFACE SYSTEM HDL 57 40 - 59 mg/dL INTERFACE SYSTEM LDL CALCULATED 67 <=99 mg/dL INTERFACE SYSTEM CHOL/HDL RATIO 2.7 2.0 - 5.0 INTER FACE SYSTEM Comment:See interpretive mara a section for risk classifications. LIPID PANEL COMMENT See below INTERFACE SYSTEM [...] <110 Borderline 110 - 129 High >=130 08/24/2004 9:30 AM CDT us Rolan Sorto MD CHEMISTRY ORDERABLES Final Result Performing Organization Address City/[facility]/ZIP Co de Phone Number INTERFACE SYSTEM Refer to clinic/hospital department * (ABNORMAL) COMPREHENSIVE METABOLIC PANEL (08/24/2004 9:30 AM CDT) GLUCOSE 169(H) 65 - 109 mg/dL INTERFACE SYSTEM CREATININE 0.9 0.4 - 1.2 mg/dL INTERFACE SYSTEM CALCIUM 10.0 8.6 - 10.2 mg/dL INTERFACE SYSTEM AST 22 12 - 32 U/L INTERFACE SYSTEM ALKALINE PHOSPHATASE 121(H) 35 - 104 U/L INTERFACE SYSTEM BUN 11 6 - 20 mg/dL INTERFACE SYSTEM BILIRUBIN TOTAL 0.4 0.2 - 1.0 mg/dL INTERFACE SYSTEM ALBUMIN 4.1 3.4 - 4.8 g/dL INTERFACE SYSTEM TOTAL PROTEIN 8.0 6.3 - 8.6 g/dL INTERFACE SYSTEM ALT 18 0 - 31 U/L INTERFACE SYSTEM SODIUM 137 135 - 145 mmol/L INTERFACE SYSTEM POTASSIUM 4.4 3.5 - 4.9 mmol/L INTERFACE SYSTEM CHLORIDE 99 96 - 108 mmol/L INTERFACE SYSTEM CO2 29 22 - 30 mmol/L INTERFACE SYSTEM 08/24/2004 9:30 AM CDT us Rolan Sorto MD CHEMISTRY ORDERABLES Final Result Performing Organization Address [facility] Phone Number INTERFACE SYSTEM Refer to clinic/hospital department documented in this encounter Visit Diagnoses Not on filedocumented in this encounter Care Teams Validation Intern Relationship Specialty Start Date End Date Renato Emanuel MD [address] [facility] [address] [place] [address] PCP - General Family Practice 11/28/23 documented as of this encounter
--- OUTSIDE RECORDS SUMMARY | 2024-05-10 13:07 | XMS_ITS | Encounter Summary ---
Author Organization [facility] Address [address] [facility] Attn: Epic Prelude ADT [place] [address] Care Team Providers Care Roofer Gypsum Name Role Phone Renato Emanuel MD Primary Care Provider [phone] Encounter Details Date Type Department Care Team (Late st Contact Info) Description 07/16/1988 Outpatient Historical Rolan Sorto MD NO ADDRESS ON FILE Social History Tobacco Use Types Packs/Day Years Used Date Smoking Tobacco: Never Assessed Comments Unknown Sex and Gender Information Value Date Recorded Sex Assigned at Not on file Legal Sex Female 4: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 DIRECTOR Gender Identity Not on file Sexual Orientation Not on file documented as of this encounter Plan of Treatment Upcoming Encounters Date Type Department Care Team (Late st Contact Info) Description 05/13/2024 2:30 PM CDT Office Visit [facility] Oncology and Hematology - Ehsan [address] [facility] 200 [place] [address] Chava Costa MD [address] [facility] [address] [place] [address] documented as of this encounter Visit Diagnoses Not on filedocumented in this encounter Care Teams Roofer Gypsum Relationship Specialty Start Date End Date Renato Emanuel MD [address] [facility] [address] [place] [address] PCP - General Family Practice 11/28/23 documented as of this encounter
--- OUTSIDE RECORDS SUMMARY | 2024-05-10 13:07 | XMS_ITS | Encounter Summary ---
Author Organization [facility] Address [address] [place] [address] Care Team Providers Care Cvir Tech Name Role Phone Renato Emanuel MD Primary Care Provider Encounter Details Date Type Department Care Team (Late Contact Info) Description 04/10/2000 Outpatient Historical 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 Gender Identity Not on file Sexual Orientation Not on file documented as of this encounter Plan of Treatment Upcoming Encounters Date Type Department Care Team (Late st Contact Info) Description 05/13/2024 2:30 PM CDT Office Visit [facility] Oncology and Hematology - Ehsan [address] [facility] 200 [place] [address] [place] [address] [place] [address] [address] [place] [address] documented as of this encounter Visit Diagnoses Not on filedocumented in this encounter Care Teams Cvir Tech Relationship Specialty Start Date End Date Renato Emanuel MD [address] [facility] 120 [place] [address] PCP - General Family Practice 11/28/23 documented as of this encounter
--- OUTSIDE RECORDS SUMMARY | 2024-05-10 13:07 | XMS_ITS | Encounter Summary ---
Author Organization [facility] Address [address] [facility] Attn: Epic Prelude ADT [place] [address] Care Team Providers Care Cheese Grader Name Role Phone Renato Emanuel MD Primary Care Provider [phone] Encounter Details Date Type Department Care Team (Late st Contact Info) Description 10/22/1994 Outpatient Historical Rolan Sorto MD NO ADDRESS ON FILE Social History Tobacco Use Types Packs/Day Years Used Date Smoking Tobacco: Never Assessed Comments Unknown Sex and Gender Information Value Date Recorded Sex Assigned at Not on file Legal Sex Female 4:44 AM ALCOHOLIC COUNSELOR Gender Identity Not on file Sexual Orientation Not on file documented as of this encounter Plan of Treatment Upcoming Encounters Date Type Department Care Team (Late st Contact Info) Description 05/13/2024 2:30 PM CDT Office Visit [facility] Oncology and Hematology - Ehsan [address] [facility] 200 [place] [address] Chava Costa MD [address] [facility] [address] [place] [address] documented as of this encounter Visit Diagnoses Not on filedocumented in this encounter Care Teams Cheese Grader Relationship Specialty Start Date End Date Renato Emanuel MD [address] [facility] 120 [place] [address] PCP - General Family Practice 11/28/23 documented as of this encounter
--- OUTSIDE RECORDS SUMMARY | 2024-05-10 13:07 | XMS_ITS | Encounter Summary ---
Author Organization [facility] Address [address] [facility] Attn: Epic Prelude ADT [place] [address] Care Team Providers Care Paper Cutting Machine Operator Name Role Phone Renato Emanuel MD Primary Care Provider [phone] Encounter Details Date Type Department Care Team (Late st Contact Info) Description 11/18/1995 Outpatient Historical Rolan Sorto MD NO ADDRESS ON FILE Social History Tobacco Use Types Packs/Day Years Used Date Smoking Tobacco: Never Assessed Comments Unknown Sex and Gender Information Value Date Recorded Sex Assigned at Not on file Legal Sex Female 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 Gender Identity Not on file Sexual Orientation Not on file documented as of this encounter Plan of Treatment Upcoming Encounters Date Type Department Care Team (Late st Contact Info) Description 05/13/2024 2:30 PM CDT Office Visit [facility] Oncology and Hematology - Ehsan [address] [facility] 200 [place] [address] Chava Costa MD [address] [facility] [address] [place] [address] documented as of this encounter Visit Diagnoses Not on filedocumented in this encounter Care Teams Paper Cutting Machine Operator Relationship Specialty Start Date End Date Renato Emanuel MD [address] [facility] 120 [place] [address] PCP - General Family Practice 11/28/23 documented as of this encounter
--- OUTSIDE RECORDS SUMMARY | 2024-05-10 13:07 | XMS_ITS | Encounter Summary ---
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 Gender Identity Not on file Sexual Orientation Not on file documented as of this encounter Plan of Treatment Upcoming Encounters Date Type Department Care Team (Late st Contact Info) Description 05/13/2024 2:30 PM CDT Office Visit [facility] Oncology and Hematology - Ehsan [address] [facility] 200 [place] [address] Chava Costa MD [address] [facility] [address] [place] [address] documented as of this encounter Visit Diagnoses Not on filedocumented in this encounter Care Teams Title Curative Specialist Relationship Specialty Start Date End Date Renato Emanuel MD [address] [facility] [address] [place] [address] PCP - General Family Practice 11/28/23 documented as of this encounter
--- OUTSIDE RECORDS SUMMARY | 2024-05-10 13:07 | XMS_ITS | Encounter Summary ---
Author Organization [facility] Address 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 Gender Identity Not on file Sexual Orientation Not on file documented as of this encounter Plan of Treatment Upcoming Encounters Date Type Department Care Team (Late st Contact Info) Description 05/13/2024 2:30 PM CDT Office Visit [facility] Oncology and Hematology - Ehsan [address] [facility] 200 [place] [address] [place] [address] [place] [address] [address] [place] [address] documented as of this encounter Visit Diagnoses Not on filedocumented in this encounter Care Teams Club Lounge Attendant Relationship Specialty Start Date End Date Renato Emanuel MD [address] [facility] 120 [place] [address] PCP - General Family Practice 11/28/23 documented as of this encounter
--- OUTSIDE RECORDS SUMMARY | 2024-05-10 13:07 | XMS_ITS | Encounter Summary ---
Author Organization [facility] Address 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 Gender Identity Not on file Sexual Orientation Not on file documented as of this encounter Plan of Treatment Upcoming Encounters Date Type Department Care Team (Late st Contact Info) Description 05/13/2024 2:30 PM CDT Office Visit [facility] Oncology and Hematology - Ehsan [address] [place] [address] [facility] 200 [place] [address] Chava Costa MD [address] [facility] [address] [place] [address] documented as of this encounter Procedures Procedure Name Priority Date/Time Associated Diagnosis Comments CBC WITH DIFFERENTIAL Routine 03/06/2007 10:35 AM COMPRESSION MOLDING MACHINE OPERATOR CBC WITH DIFFERENTIAL Routine 03/06/2007 10:35 AM COMPRESSION MOLDING MACHINE OPERATOR TSH Routine 03/06/2007 10:35 AM COMPRESSION MOLDING MACHINE OPERATOR HEMOGLOBIN A1C Routine 03/06/2007 10:35 AM COMPRESSION MOLDING MACHINE OPERATOR LIPID PANEL Routine 03/06/2007 10:35 AM COMPRESSION MOLDING MACHINE OPERATOR COMPREHENSIVE METABOLIC PANEL Routine 03/06/2007 10:35 AM COMPRESSION MOLDING MACHINE OPERATOR documented in this encounter Results * CBC WITH DIFFERENTIAL (03/06/2007 10:35 AM COMPRESSION MOLDING MACHINE OPERATOR) NEUTROPHILS 67 45 - 70 % INTERFAC E SYSTEM LYMPHOCYTES 24 16 - 45 % INTERFAC E SYSTEM MONOCYTES 8 3 - 13 % INTERFACE SYSTEM EOSINOPHILS 1 0 - 7 % INTERFAC E SYSTEM BASOPHILS 0 0 - 2 % INTERFACE SYSTEM NEUTROPHIL ABSOLUTE 5.84 1.90 - 7.00 K/uL INTERFACE SYSTEM LYMPHOCYTE ABSOLUTE 2.11 0.70 - 4.50 K/uL INTERFACE SYSTEM MONOCYTE ABSOLUTE 0.70 0.10 - 1.30 K/uL INTERFACE SYSTEM EOSINOPHIL ABSOLUTE 0.07 0.00 - 0.70 K/uL INTERFACE SYSTEM BASOPHILS ABSOLUTE 0.03 0.00 - 0.20 K/uL INTERFACE SYSTEM 03/06/2007 10:3 5 AM COMPRESSION MOLDING MACHINE OPERATOR us Rolan Sorto MD HEMATOLOGY ORDERABLES Edit ed INTERFACE SYSTEM Refer to clinic/hospital department * (ABNORMAL) CBC WITH DIFFERENTIAL (03/06/2007 10:35 AM COMPRESSION MOLDING MACHINE OPERATOR) WBC 8.8 4.0 - 9.8 K/uL INTERFACE SYSTEM RBC 4.22 3.90 - 4.90 M/uL INTERFACE SYSTEM HEMOGLOBIN 12.0 11.8 - 14.8 g/dL INTERFACE SYSTEM HEMATOCRIT 38.6 35.5 - 44.0 % INTERFACE SYSTEM MCV 91.5 82.0 - 99.0 fL INTERFACE SYSTEM MCH 28.4 27.2 - 32.6 pg INTERFACE SYSTEM MCHC 31.1(L) 31.5 - 35.5 % INTERFACE SYSTEM RDW 13.9 11.5 - 14.5 % INTERFACE SYSTEM RDW-STDEV 46.5 37.1 - 48.7 fL INTERFACE SYSTEM PLATELETS 362(H) 140 - 350 K/uL INTERFACE SYSTEM MPV 11.7 9.3 - 12.4 fL INTERFACE SYSTEM 03/06/2007 10:3 5 AM COMPRESSION MOLDING MACHINE OPERATOR Rolan Sorto MD HEMATOLOGY ORDERABLES Edit ed Performing Organization Address [facility] Phone Number INTERFACE SYSTEM Refer to clinic/hospital department * TSH (03/06/2007 10:35 AM COMPRESSION MOLDING MACHINE OPERATOR) TSH 3.01 0.27 - 4.20 uU/mL INTERFACE SYSTEM 03/06/2007 10:3 5 AM COMPRESSION MOLDING MACHINE OPERATOR Rolan Sorto MD CHEMISTRY ORDERABLES Edite d Performing Organization Address [facility] Phone Number INTERFACE SYSTEM Refer to clinic/hospital department * (ABNORMAL) HEMOGLOBIN A1C (03/06/2007 10:35 AM COMPRESSION MOLDING MACHINE OPERATOR) HEMOGLOBIN A1C 7.4(H) 4.1 - 6.1 % of Hgb INTERFACE SYSTEM GLUCOSE, MEAN BLOOD 186 mg/dL INTERFACE SYSTEM 03/06/2007 10:3 5 AM COMPRESSION MOLDING MACHINE OPERATOR Rolan Sorto MD CHEMISTRY ORDERABLES Edite d Performing Organization Address [facility] Phone Number INTERFACE SYSTEM Refer to clinic/hospital department * LIPID PANEL (03/06/2007 10:35 AM COMPRESSION MOLDING MACHINE OPERATOR) CHOLESTEROL 166 100 - 199 mg/dL INTERFACE SYSTEM TRIGLYCERIDE 118 10 - 149 mg/dL INTERFACE SYSTEM HDL 54 40 - 59 mg/dL INTERFACE SYSTEM CHOL/HDL RATIO 3.1 2.0 - 5.0 INTER FACE SYSTEM LDL CALCULATED 88 <=99 mg/dL INTERFACE SYSTEM LIPID PANEL COMMENT See Below INTERFACE SYSTEM Comment: The adult ATP and pediatric NCEP classifications for lipids are available on the [facility] Intranet at: [email or web address] Select: Lab Policies and Procedures,Current Select: Lipid Panel Interpretation 03/06/2007 10:3 5 AM COMPRESSION MOLDING MACHINE OPERATOR Rolan Sorto MD CHEMISTRY ORDERABLES Edite d INTERFACE SYSTEM Refer to clinic/hospital department * (ABNORMAL) COMPREHENSIVE METABOLIC PANEL (03/06/2007 10:35 AM COMPRESSION MOLDING MACHINE OPERATOR) GLUCOSE 143(H) 65 - 99 mg/dL INTERFACE SYSTEM CREATININE 0.78 0.51 - 0.95 mg/dL INTERFACE SYSTEM CALCIUM 9.4 8.4 - 10.2 mg/dL INTERFACE SYSTEM ALKALINE PHOSPHATASE 106(H) 35 - 104 U/L INTERFACE SYSTEM AST 21 12 - 32 U/L INTERFACE SYSTEM ALT 19 0 - 31 U/L INTERFACE SYSTEM TOTAL PROTEIN 7.9 6.3 - 8.6 g/dL INTERFACE SYSTEM ALBUMIN 4.4 3.4 - 4.8 g/dL INTERFACE SYSTEM BILIRUBIN TOTAL 0.2 0.2 - 1.0 mg/dL INTERFACE SYSTEM BUN 18 6 - 20 mg/dL INTERFACE SYSTEM SODIUM 140 135 - 145 mmol/L INTERFACE SYSTEM POTASSIUM 4.5 3.5 - 4.9 mmol/L INTERFACE SYSTEM CHLORIDE 102 96 - 108 mmol/L INTERFACE SYSTEM CO2 29 22 - 30 mmol/L INTERFACE SYSTEM GFR, >60 >=60 mL/min/1. 7 sq meter INTERFACE SYSTEM GFR >60 >=60 mL/min/1. 7 sq meter INTERFACE SYSTEM Comment: Estimated GFR rate interpretative information for both Americans and non- Americans is available on the [facility] Intranet at: [email or web address] Select: Lab Policies and Procedures Select: Reference Ranges - GFR 03/06/2007 10:3 5 AM COMPRESSION MOLDING MACHINE OPERATOR us Rolan Sorto MD CHEMISTRY ORDERABLES Edite d INTERFACE SYSTEM Refer to clinic/hospital department documented in this encounter Visit Diagnoses Diagnosis Type II or unspecified type diabetes mellitus without mention of complication, not stated as uncontrolled documented in this encounter Care Teams River Tester Relationship Specialty Start Date End Date Renato Emanuel MD [address] [facility] 120 [place] [address] PCP - General Family Practice 11/28/23 documented as of this encounter
--- OUTSIDE RECORDS SUMMARY | 2024-05-10 13:07 | XMS_ITS | Encounter Summary ---
Author Organization [facility] Address [address] [place] [address] Care Team Providers Care Supervisor Advice Name Role Phone Renato Emanuel MD Primary Care Provider [phone] Encounter Details Date Type Department Care Team (Latest Contact Info) Description 03/13/2004 Outpatient Historical HIS [facility] SINCERE Sorto, Rolan Montoya MD NO ADDRESS ON FILE DIABETES MELLITUS TYPE II-UNCOMPL (CMS/HCC) (Primary Dx) Social History Tobacco Use Types Packs/Day Years Used Date Smoking Tobacco: Never Assessed Comments Unknown Sex and Gender Information Value Date Recorded Sex Assigned at Not on file Legal Sex Female 4:44 AM PARTS LISTER Gender Identity Not on file Sexual Orientation Not on file documented as of this encounter Plan of Treatment Upcoming Encounters Date Type Department Care Team (Late st Contact Info) Description 05/13/2024 2:30 PM CDT Office Visit [facility] Oncology and Hematology - Ehsan [address] [facility] 200 [place] [address] Chava Costa MD [address] [facility] [address] [place] [address] documented as of this encounter Procedures Procedure Name Priority Date/Time Associated Diagnosis Comments LIPID PANEL Routine 03/13/2004 10:19 AM PARTS LISTER COMPREHENSIVE METABOLIC PANEL Routine 03/13/2004 10:19 AM PARTS LISTER documented in this encounter Results * (ABNORMAL) LIPID PANEL (03/13/2004 10:19 AM PARTS LISTER) CHOLESTEROL 162 100 - 199 mg/dL INTERFACE SYSTEM TRIGLYCERIDE 142 10 - 149 mg/dL INTERFACE SYSTEM HDL 62(H) 40 - 59 mg/dL INTERFACE SYSTEM LDL CALCULATED 72 <=99 mg/dL INTERFACE SYSTEM CHOL/HDL RATIO 2.6 2.0 - 5.0 INTER FACE SYSTEM Comment:See [...] <110 Borderline 110 - 129 High >=130 03/13/2004 10:1 9 AM PARTS LISTER Rolan Sorto MD CHEMISTRY ORDERABLES Final Result INTERFACE SYSTEM Refer to clinic/hospital department * (ABNORMAL) COMPREHENSIVE METABOLIC PANEL (03/13/2004 10:19 AM PARTS LISTER) GLUCOSE 185(H) 65 - 109 mg/dL INTERFACE SYSTEM CREATININE 0.8 0.4 - 1.2 mg/dL INTERFACE SYSTEM CALCIUM 9.7 8.6 - 10.2 mg/dL INTERFACE SYSTEM AST 19 12 - 32 U/L INTERFACE SYSTEM ALKALINE PHOSPHATASE 125(H) 35 - 104 U/L INTERFACE SYSTEM BUN 11 6 - 20 mg/dL INTERFACE SYSTEM BILIRUBIN TOTAL 0.4 0.2 - 1.0 mg/dL INTERFACE SYSTEM ALBUMIN 4.4 3.4 - 4.8 g/dL INTERFACE SYSTEM TOTAL PROTEIN 7.9 6.3 - 8.6 g/dL INTERFACE SYSTEM ALT 17 0 - 31 U/L INTERFACE SYSTEM SODIUM 140 135 - 145 mmol/L INTERFACE SYSTEM POTASSIUM 4.0 3.5 - 4.9 mmol/L INTERFACE SYSTEM CHLORIDE 101 96 - 108 mmol/L INTERFACE SYSTEM CO2 30 22 - 30 mmol/L INTERFACE SYSTEM 03/13/2004 10:1 9 AM PARTS LISTER us Rolan Sorto MD CHEMISTRY ORDERABLES Final Result INTERFACE SYSTEM Refer to clinic/hospital department documented in this encounter Visit Diagnoses Diagnosis Type II or unspecified type diabetes mellitus without mention of complication, not stated as uncontrolled- Primary documented in this encounter Care Teams Supervisor Advice Relationship Specialty Start Date End Date Renato Emanuel MD [address] [facility] [address] [place] [address] PCP - General Family Practice 11/28/23 documented as of this encounter
--- OUTSIDE RECORDS SUMMARY | 2024-05-10 13:07 | XMS_ITS | Encounter Summary ---
Author Organization [facility] Address 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 Gender Identity Not on file Sexual Orientation Not on file documented as of this encounter Plan of Treatment Upcoming Encounters Date Type Department Care Team (Late st Contact Info) Description 05/13/2024 2:30 PM CDT Office Visit [facility] Oncology and Hematology - Ehsan [address] [facility] 200 [place] [address] [place] [address] [place] [address] [address] [place] [address] documented as of this encounter Visit Diagnoses Not on filedocumented in this encounter Care Teams Deli Worker Relationship Specialty Start Date End Date Renato Emanuel MD [address] [facility] 120 [place] [address] PCP - General Family Practice 11/28/23 documented as of this encounter
--- OUTSIDE RECORDS SUMMARY | 2024-05-10 13:07 | XMS_ITS | Encounter Summary ---
Author Organization [facility] Address [address] [facility] Attn: Epic Prelude ADT ADRIANE ALF[place] [address] Care Team Providers Care Invasive Cardiovascular Technologist Name Role Phone Renato Emanuel MD Primary Care Provider [phone] Encounter Details Date Type Department Care Team (Late st Contact Info) Description 10/02/1995 Outpatient Historical Rolan Sorto MD NO ADDRESS ON FILE Social History Tobacco Use Types Packs/Day Years Used Date Smoking Tobacco: Never Assessed Comments Unknown Sex and Gender Information Value Date Recorded Sex Assigned at Not on file Legal Sex Female 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 Gender Identity Not on file Sexual Orientation Not on file documented as of this encounter Plan of Treatment Upcoming Encounters Date Type Department Care Team (Late st Contact Info) Description 05/13/2024 2:30 PM CDT Office Visit [facility] Oncology and Hematology - Ehsan [address] [facility] 200 [place] [address] Chava Costa MD [address] [facility] [address] [place] [address] documented as of this encounter Visit Diagnoses Not on filedocumented in this encounter Care Teams Invasive Cardiovascular Technologist Relationship Specialty Start Date End Date Renato Emanuel MD [address] [facility] 120 [place] [address] PCP - General Family Practice 11/28/23 documented as of this encounter
--- OUTSIDE RECORDS SUMMARY | 2024-05-10 13:07 | XMS_ITS | Encounter Summary ---
Author Organization [facility] Address [address] [place] [address] Care Team Providers Care Warehouse Delivery Driver Name Role Phone Renato Emanuel MD Primary Care Provider [phone] Encounter Details Date Type Department Care Team (Late Contact Info) Description 05/22/2000 Outpatient Historical HIS [facility] SINCERE Sorto, Rolan Montoya MD NO ADDRESS ON FILE Social History Tobacco Use Types Packs/Day Years Used Date Smoking Tobacco: Never Assessed Comments Unknown Sex and Gender Information Value Date Recorded Sex Assigned at Not on file Legal Sex Female 4:44 AM BIOFUELS MANAGER Gender Identity Not on file Sexual Orientation Not on file documented as of this encounter Plan of Treatment Upcoming Encounters Date Type Department Care Team (Late st Contact Info) Description 05/13/2024 2:30 PM CDT Office Visit [facility] Oncology and Hematology - Ehsan [address] [facility] 200 [place] [address] [place] [address] [place] [address] [address] [place] [address] documented as of this encounter Visit Diagnoses Not on filedocumented in this encounter Care Teams Warehouse Delivery Driver Relationship Specialty Start Date End Date Renato Emanuel MD [address] [facility] 120 [place] [address] PCP - General Family Practice 11/28/23 documented as of this encounter
--- OUTSIDE RECORDS SUMMARY | 2024-05-10 13:07 | XMS_ITS | Encounter Summary ---
Author Organization [facility] Address 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 Gender Identity Not on file Sexual Orientation Not on file documented as of this encounter Plan of Treatment Upcoming Encounters Date Type Department Care Team (Late st Contact Info) Description 05/13/2024 2:30 PM CDT Office Visit [facility] Oncology and Hematology - Ehsan [address] [facility] 200 [place] [address] [place] [address] [place] [address] [address] [place] [address] documented as of this encounter Visit Diagnoses Not on filedocumented in this encounter Care Teams Music Artist Relationship Specialty Start Date End Date Renato Emanuel MD [address] [facility] 120 [place] [address] PCP - General Family Practice 11/28/23 documented as of this encounter
--- OUTSIDE RECORDS SUMMARY | 2024-05-10 13:07 | XMS_ITS | Encounter Summary ---
Author Organization [facility] Address [address] [place] [address] Care Team Providers Care Drywall Professional Name Role Phone Renato Emanuel MD Primary Care Provider [phone] Encounter Details Date Type Department Care Team (Late Contact Info) Description 07/12/[address] [facility] SINCERE Sorto, Rolan Montoya MD NO ADDRESS ON FILE Social History Tobacco Use Types Packs/Day Years Used Date Smoking Tobacco: Never Assessed Comments Unknown Sex and Gender Information Value Date Recorded Sex Assigned at Not on file Legal Sex Female 4:44 AM CLIN NURSE SPEC Gender Identity Not on file Sexual Orientation Not on file documented as of this encounter Plan of Treatment Upcoming Encounters Date Type Department Care Team (Late st Contact Info) Description 05/13/2024 2:30 PM CDT Office Visit [facility] Oncology and Hematology - Ehsan [address] [facility] 200 [place] [address] [place] [address] [place] [address] [address] [place] [address] documented as of this encounter Visit Diagnoses Not on filedocumented in this encounter Care Teams Drywall Professional Relationship Specialty Start Date End Date Renato Emanuel MD [address] [facility] 120 [place] [address] PCP - General Family Practice 11/28/23 documented as of this encounter
--- OUTSIDE RECORDS SUMMARY | 2024-05-10 13:07 | XMS_ITS | Encounter Summary ---
Author Organization [facility] Address [address] [place] [address] Care Team Providers Care Agricultural Equipment Test Engineer Name Role Phone Renato Eamnuel MD Primary Care Provider [phone] Encounter Details Date Type Department Care Team (Latest Contact Info) Description 05/22/2000 Outpatient Historical [facility] Rolan Sorto MD NO ADDRESS ON FILE Special screening for osteoporosis (Primary Dx) Social History Tobacco Use Types Packs/Day Years Used Date Smoking Tobacco: Never Assessed Comments Unknown Sex and Gender Information Value Date Recorded Sex Assigned at Not on file Legal Sex Female 4:44 AM TELEPHONE SALES AGENT Gender Identity Not on file Sexual Orientation Not on file documented as of this encounter Plan of Treatment Upcoming Encounters Date Type Department Care Team (Late st Contact Info) Description 05/13/2024 2:30 PM CDT Office Visit [facility] Oncology and Hematology - Ehsan [address] [facility] 200 [place] [address] Chava Costa MD [address] [facility] [address] [place] [address] documented as of this encounter Visit Diagnoses Diagnosis Special screening for osteoporosis- Primary documented in this encounter Care Teams Agricultural Equipment Test Engineer Relationship Specialty Start Date End Date Renato Emanuel MD [address] [facility] 120 [place] [address] PCP - General Family Practice 11/28/23 documented as of this encounter
--- OUTSIDE RECORDS SUMMARY | 2024-05-10 13:07 | XMS_ITS | Clinical Summary ---
Author Organization [facility] [employer] Address [address] [facility] [place] [address] Care Team Providers Care Faculty Support Coordinator Name Role Phone Renato Emanuel MD Primary Care Provider [phone] Source Comments [facility] [employer],non-[facility] Affiliates and Associated Physician Practices is amultiple site organization consisting of ambulatory clinics and hospital sitesin [place], [place], [place] and [place]. This disclosure is being madepursuant to the Care Everywhere program and may not contain all information available regarding this patient. Last updated 17.[facility] [employer] [employer] Allergies No known active allergies Medications * Be aware that medications may not be up to date on this document. Alwaysverify current medications with the patient. Medication Sig Dispensed Refills Start Date End Date Status METFORMIN HCL PO Active GLIPIZIDE PO Active METOPROLOL TARTRATE PO Ac tive hydroCHLOROthiazide (MICROZIDE) 12.5 MG capsule Active Citalopram Hydrobromide (CITALOPRAM PO) Active PRAVASTATIN SODIUM PO Act erick Cyanocobalamin (VITAMIN B 12 PO) Active timolol maleate (TIMOPTIC) 0.5 % ophthalmic solution 1 Drop 2 times daily Active LOSARTAN POTASSIUM PO Act erick fluticasone propionate (FLONASE) 50 MCG/ACT nasal sprayIndications:Acute maxillary sinusitis, recurrence not specified [place] 2 Sprays into each nostril once daily 1 Bottle 10/06/2016 Active Social History Tobacco Use Types Packs/Day Years Used Date Smoking Tobacco: Never Smokeless Tobacco: Never Comments:positive for histor y of passive smoke exposure Sex and Gender Information Value Date Recorded Sex Assigned at Not on file Gender Identity Not on file Sexual Orientation Not on file Last Filed Vital Signs Vital Sign Reading Time Taken Comments Blood Pressure 154/72 10/06/2016 9:47 AM CDT Pulse 72 10/06/2016 9:47 AM CDT Temperature 36.8 C (98.2 F) 10/06/2016 9:47 AM CDT Respiratory Rate 16 10/06/2016 9:47 AM CDT Oxygen Saturation 99% 10/06/2016 9:47 AM CDT Inhaled Oxygen Concentration - - Weight 52.2 kg (115 lb) 10/06/2016 9:47 AM CDT Height 137.2 cm (4' 6 ) 10/06/2016 9:47 AM CDT Body Mass Index 27.73 10/06/2016 9:47 AM CDT Plan of Treatment Health Maintenance Due Date Last Done Comments BONE DENSITY TESTING 1945 MEDICARE AWV 12 MONTHS 1945 DTAP/TDAP/TD VACCINES (1 - Tdap) 06/25/1962 PNEUMOCOCCAL VACCINE 50+ (1 of 1 - PCV) 06/25/1993 ZOSTER VACCINE (1 of 2) 06/25/1993 Respiratory Syncytial Virus (RSV) Vaccine Pt: or over 60 yrs (1 - 1-dose 75+ series) 06/25/2018 COVID-19 VACCINE ( - 2023-2 5 season) 2023 INFLUENZA VACCINE (#1) 2023 DEPRESSION SCREENING 02/07/2024 HEPATITIS B VACCINE Aged Out No longe r eligible based on patient's age to complete this topic HIB VACCINE Aged Out No longer eligi ble based on patient's age to complete this topic HPV VACCINE Aged Out No longer eligi ble based on patient's age to complete this topic MENINGOCOCCAL (Group B) VACC INE SHARED DECISION-MAKING Aged Out No longer eligibl e based on patient's age to complete this topic MENINGOCOCCAL GROUPS A/C/Y/W VACCINE Aged Out No longer eligible b ased on patient's age to complete this topic Care Teams Faculty Support Coordinator Relationship Specialty Start Date End Date Renato Emanuel MD [address] [place] [address] PCP - General Family Medicine 10/06/16
--- OUTSIDE RECORDS SUMMARY | 2024-05-10 13:07 | XMS_ITS | Encounter Summary ---
Author Organization [facility] Address [address] [place] [address] Care Team Providers Care Face Hardener Name Role Phone Renato Emanuel MD Primary Care Provider [phone] Encounter Details Date Type Department Care Team (Late st Contact Info) Description 03/01/2002 Outpatient Historical [facility], [address] Rolan Sorto MD NO ADDRESS ON FILE Social History Tobacco Use Types Packs/Day Years Used Date Smoking Tobacco: Never Assessed Comments Unknown Sex and Gender Information Value Date Recorded Sex Assigned at Not on file Legal Sex Female 4:44 AM TRAIN CONTROLLER Gender Identity Not on file Sexual Orientation Not on file documented as of this encounter Plan of Treatment Upcoming Encounters Date Type Department Care Team (Late st Contact Info) Description 05/13/2024 2:30 PM CDT Office Visit [facility] Oncology and Hematology - Ehsan [address] [facility] 200 [place] [address] [place] [address] [place] [address] [address] [place] [address] documented as of this encounter Visit Diagnoses Not on filedocumented in this encounter Care Teams Face Hardener Relationship Specialty Start Date End Date Renato Emanuel MD [address] [facility] [address] [place] [address] PCP - General Family Practice 11/28/23 documented as of this encounter
--- OUTSIDE RECORDS SUMMARY | 2024-05-10 13:07 | XMS_ITS | Encounter Summary ---
Author Organization [facility] Address [address] [facility] Attn: Epic Prelude ADT ADRIANE ALF[place] [address] Care Team Providers Care Nitroglycerin Neutralizer Name Role Phone Renato Emanuel MD Primary Care Provider [phone] Encounter Details Date Type Department Care Team (Late st Contact Info) Description 10/22/1990 Outpatient Historical Rolan Sorto MD NO ADDRESS ON FILE Social History Tobacco Use Types Packs/Day Years Used Date Smoking Tobacco: Never Assessed Comments Unknown Sex and Gender Information Value Date Recorded Sex Assigned at Not on file Legal Sex Female 4:44 AM MOBILE DEVELOPER Gender Identity Not on file Sexual Orientation Not on file documented as of this encounter Plan of Treatment Upcoming Encounters Date Type Department Care Team (Late st Contact Info) Description 05/13/2024 2:30 PM CDT Office Visit [facility] Oncology and Hematology - Ehsan [address] [facility] 200 [place] [address] Chava Costa MD [address] [facility] [address] [place] [address] documented as of this encounter Visit Diagnoses Not on filedocumented in this encounter Care Teams Nitroglycerin Neutralizer Relationship Specialty Start Date End Date Renato Emanuel MD [address] [facility] 120 [place] [address] PCP - General Family Practice 11/28/23 documented as of this encounter
--- OUTSIDE RECORDS SUMMARY | 2024-05-10 13:07 | XMS_ITS | Encounter Summary ---
Author Organization [facility] Address [address] [place] [address] Care Team Providers Care Emery Wheel Molder Name Role Phone Renato Emanuel MD Primary Care Provider [phone] Encounter Details Date Type Department Care Team (Late Contact Info) Description 03/25/2006 Outpatient Historical [facility], [address] Rolan Sorto MD NO ADDRESS ON FILE Social History Tobacco Use Types Packs/Day Years Used Date Smoking Tobacco: Never Assessed Comments Unknown Sex and Gender Information Value Date Recorded Sex Assigned at Not on file Legal Sex Female 4:44 AM MINE SUPERINTENDENT Gender Identity Not on file Sexual Orientation Not on file documented as of this encounter Plan of Treatment Upcoming Encounters Date Type Department Care Team (Late st Contact Info) Description 05/13/2024 2:30 PM CDT Office Visit [facility] Oncology and Hematology - Ehsan [address] [facility] 200 [place] [address] Chava Costa MD [address] [facility] [address] [place] [address] documented as of this encounter Procedures Procedure Name Priority Date/Time Associated Diagnosis Comments CBC WITH DIFFERENTIAL Routine 03/25/2006 8:20 AM MINE SUPERINTENDENT CBC WITH DIFFERENTIAL Routine 03/25/2006 8:20 AM MINE SUPERINTENDENT TSH Routine 03/25/2006 8:20 AM MINE SUPERINTENDENT LIPID PANEL Routine 03/25/2006 8:20 AM MINE SUPERINTENDENT COMPREHENSIVE METABOLIC PANEL Routine 03/25/2006 8:20 AM MINE SUPERINTENDENT documented in this encounter Results * CBC WITH DIFFERENTIAL (03/25/2006 8:20 AM MINE SUPERINTENDENT) NEUTROPHILS 58 45 - 70 % INTERFAC E SYSTEM LYMPHOCYTES 31 16 - 45 % INTERFAC E SYSTEM MONOCYTES 9 3 - 13 % INTERFACE SYSTEM EOSINOPHILS 2 0 - 7 % INTERFAC E SYSTEM BASOPHILS 0 0 - 2 % INTERFACE SYSTEM NEUTROPHIL ABSOLUTE 4.41 1.90 - 7.00 K/uL INTERFACE SYSTEM LYMPHOCYTE ABSOLUTE 2.39 0.70 - 4.50 K/uL INTERFACE SYSTEM MONOCYTE ABSOLUTE 0.66 0.10 - 1.30 K/uL INTERFACE SYSTEM EOSINOPHIL ABSOLUTE 0.13 0.00 - 0.70 K/uL INTERFACE SYSTEM BASOPHILS ABSOLUTE 0.01 0.00 - 0.20 K/uL INTERFACE SYSTEM 03/25/2006 8:20 AM MINE SUPERINTENDENT Rolan Sorto MD HEMATOLOGY ORDERABLES Edit ed INTERFACE SYSTEM Refer to clinic/hospital department * (ABNORMAL) CBC WITH DIFFERENTIAL (03/25/2006 8:20 AM MINE SUPERINTENDENT) Pathologist [facility] WBC 7.6 4.0 - 9.8 K/uL INTERFACE SYSTEM RBC 4.34 3.90 - 4.90 M/uL INTERFACE SYSTEM HEMOGLOBIN 12.5 11.8 - 14.8 g/dL INTERFACE SYSTEM HEMATOCRIT 37.9 35.5 - 44.0 % INTERFACE SYSTEM MCV 87.3 82.0 - 99.0 fL INTERFACE SYSTEM MCH 28.8 27.2 - 32.6 pg INTERFACE SYSTEM MCHC 33.0 31.5 - 35.5 % INTERFACE SYSTEM RDW 13.8 11.5 - 14.5 % INTERFACE SYSTEM RDW-STDEV 44.4 37.1 - 48.7 fL INTERFACE SYSTEM PLATELETS 376(H) 140 - 350 K/uL INTERFACE SYSTEM MPV 11.1 9.3 - 12.4 fL INTERFACE SYSTEM 03/25/2006 8:20 AM MINE SUPERINTENDENT Rolan Sorto MD HEMATOLOGY ORDERABLES Edit ed Performing Organization Address [facility] de Phone Number INTERFACE SYSTEM Refer to clinic/hospital department * TSH (03/25/2006 8:20 AM MINE SUPERINTENDENT) TSH 4.20 0.27 - 4.20 uU/mL INTERFACE SYSTEM 03/25/2006 8:20 AM MINE SUPERINTENDENT Rolan Sorto MD CHEMISTRY ORDERABLES Edite d Performing Organization Address [facility] Phone Number INTERFACE SYSTEM Refer to clinic/hospital department * (ABNORMAL) LIPID PANEL (03/25/2006 8:20 AM MINE SUPERINTENDENT) CHOLESTEROL 145 100 - 199 mg/dL INTERFACE SYSTEM TRIGLYCERIDE 169(H) 10 - 149 mg/dL INTERFACE SYSTEM HDL 49 40 - 59 mg/dL INTERFACE SYSTEM CHOL/HDL RATIO 3.0 2.0 - 5.0 INTER FACE SYSTEM LDL CALCULATED 62 <=99 mg/dL INTERFACE SYSTEM LIPID PANEL COMMENT See Below INTERFACE SYSTEM Comment: The adult ATP and pediatric NCEP classifications for lipids are available on the [facility] Intranet at: [email or web address] Select: Lab Policies and Procedures Select: Reference Ranges - Lipids 03/25/2006 8:20 AM MINE SUPERINTENDENT Rolan Sorto MD CHEMISTRY ORDERABLES Edite d Performing Organization Address [facility] de Phone Number INTERFACE SYSTEM Refer to clinic/hospital department * (ABNORMAL) COMPREHENSIVE METABOLIC PANEL (03/25/2006 8:20 AM MINE SUPERINTENDENT) GLUCOSE 207(H) 65 - 99 mg/dL INTERFACE SYSTEM CREATININE 0.79 0.51 - 0.95 mg/dL INTERFACE SYSTEM CALCIUM 9.3 8.4 - 10.2 mg/dL INTERFACE SYSTEM ALKALINE PHOSPHATASE 110(H) 35 - 104 U/L INTERFACE SYSTEM AST 21 12 - 32 U/L INTERFACE SYSTEM ALT 18 0 - 31 U/L INTERFACE SYSTEM TOTAL PROTEIN 7.9 6.3 - 8.6 g/dL INTERFACE SYSTEM ALBUMIN 4.3 3.4 - 4.8 g/dL INTERFACE SYSTEM BILIRUBIN TOTAL 0.3 0.2 - 1.0 mg/dL INTERFACE SYSTEM BUN 13 6 - 20 mg/dL INTERFACE SYSTEM SODIUM 138 135 - 145 mmol/L INTERFACE SYSTEM POTASSIUM 4.8 3.5 - 4.9 mmol/L INTERFACE SYSTEM CHLORIDE 100 96 - 108 mmol/L INTERFACE SYSTEM CO2 30 22 - 30 mmol/L INTERFACE SYSTEM GFR, >60 >=60 mL/min/1. 7 sq meter INTERFACE SYSTEM GFR >60 >=60 mL/min/1. 7 sq meter INTERFACE SYSTEM Comment: Estimated GFR rate interpretative information for both Americans and non- Americans is available on the [facility] Intranet at: [email or web address] Select: Lab Policies and Procedures Select: Reference Ranges - GFR 03/25/2006 8:20 AM MINE SUPERINTENDENT Rolan Sorto MD CHEMISTRY ORDERABLES Edite d INTERFACE SYSTEM Refer to clinic/hospital department documented in this encounter Visit Diagnoses Not on filedocumented in this encounter Care Teams Emery Wheel Molder Relationship Specialty Start Date End Date Renato Emanuel MD [address] [facility] 120 [place] [address] PCP - General Family Practice 11/28/23 documented as of this encounter
--- OUTSIDE RECORDS SUMMARY | 2024-05-10 13:07 | XMS_ITS | Encounter Summary ---
Author Organization [facility] Address [address] [facility] Attn: Epic Prelude ADT ADRIANE ALFORD [address] Care Team Providers Care Machine Operator Farmworker Name Role Phone Renato Emanuel MD Primary Care Provider [phone] Encounter Details Date Type Department Care Team (Late st Contact Info) Description 08/30/1993 Outpatient Historical Rolan Sorto MD NO ADDRESS ON FILE Social History Tobacco Use Types Packs/Day Years Used Date Smoking Tobacco: Never Assessed Comments Unknown Sex and Gender Information Value Date Recorded Sex Assigned at Not on file Legal Sex Female 4:44 AM MACHINE FIXER Gender Identity Not on file Sexual Orientation Not on file documented as of this encounter Plan of Treatment Upcoming Encounters Date Type Department Care Team (Late st Contact Info) Description 05/13/2024 2:30 PM CDT Office Visit [facility] Oncology and Hematology - Ehsan [address] [facility] 200 [place] [address] Chava Costa MD [address] [facility] [address] [place] [address] documented as of this encounter Visit Diagnoses Not on filedocumented in this encounter Care Teams Machine Operator Farmworker Relationship Specialty Start Date End Date Renato Emanuel MD [address] [facility] [address] [place] [address] PCP - General Family Practice 11/28/23 documented as of this encounter
[2024-05-10 13:22] LABS: Basophils Percent Auto 0.6 % (0.2-1.2); Eosinophils Absolute Auto 0.1 K/mm3 (0-0.3); Eosinophils Percent Auto 1.7 % (0-4.4); Hematocrit 35.6 % (37.0-47.0); Immature Granulocyte Absolute 0.02 K/mm3 (0.00-0.031); Immature Granulocyte Percent A 0.3 % (0-0.5); Lymphocytes Absolute Auto 1.81 K/mm3 (0.9-3.2); Lymphocytes Percent Auto 27.4 % (18.3-44.2); Mean Corpuscular HGB Conc 33.7 g/dl (32-36); Mean Corpuscular Hemoglobin 32.7 pg (26-34); Mean Platelet Volume 9.7 fl (7.4-10.4); Monocytes Absolute Auto 0.6 K/mm3 (0.1-0.6); Monocytes Percent Auto 9.1 % (2.6-8.5); Neutrophils Percent Auto 60.9 % (45.5-73.1); Platelet Count Result 286 k/mm3 (150-375); Red Blood Count 3.67 M/mm3 (4.2-5.4); Red Cell Distribution Width 12.1 % (11.5-14.5); White Blood Count 6.6 K/mm3 (4.5-10.0)
[2024-05-10 14:30] LABS: Iron 100 ug/dL (37-170)
[2024-05-10 14:37] LABS: Anion Gap 10 mmol/L (4-12); Blood Urea Nitrogen 19 mg/dL (7-17); Calcium 9.6 mg/dL (8.4-10.2); Carbon Dioxide 27 mmol/L (22-30); Chloride 100 mmol/L (98-107); Estimated Glomerular Filt Rate 52; Glucose 226 mg/dL (65-110); Potassium 4.3 mmol/L (3.4-5.0); Sodium 137 mmol/L (137-145)
[2024-05-10 14:41] LABS: Percent Iron Saturation 36 % (20-50)
[2024-05-10 17:03] LABS: Folic Acid 14.6 ng/mL (2.76->20); Vitamin B12 > 1000.0 pg/mL (239-931)
== END 2024-05-10 13:04 | disposition home or self-care (01) ==
LOC: ANHLAB 13:04
PROVIDERS: PCP Family Medicine; Visit Provider Internal Medicine Hematology & Oncology
DX: D64.9 Anemia, unspecified (principal)
CPT/HCPCS: 36415; 80048; 82607; 82728; 82746; 83540; 83550; 85025